=== PATIENT | male | born 1975 | race Caucasian/White ===

== ENCOUNTER 2021-10-30 20:53 | Inpatient (IN) ==
--- NOTE | 2021-10-30 21:32 | DR.CP ---
HPI Time Seen Time Seen by Provider: 10/30/21 21:29 PCP Primary Care Physician: PAVEL HPI Comment HPI Comment: CP and sob intermittently since yesterday which worsened today; no cough, fever, chills, abd pain, n/v/d; he smokes sporadically and dips; he had a spontaneous pneumo at 14 which did not require ct. Complaint Chief Complaint:: PT C/O CHEST PAIN AND SHORTNESS OF BREATH THAT STARTED YESTERDAY. PT STATED I THOUGHT IT WAS ACID REFLUX BUT TODAY THE PAIN HAS STARTED BACK AN THE PAIN IS WORSE. Source History Provided: Patient Mode of Arrival Mode of Arrival: Ambulatory Timing Onset of Chief Complaint: 10/29/21 PMH PMH Past Medical History: Yes Past Medical History Comment: BONE INFECTION OF THE SPINAL CORD Past Surgical History: No Family History History of Family Medical Conditions: No Social History Does patient currently use any type of tobacco product: No Have you used tobacco products in the last 12 months: No Type of Tobacco Use: None Does any household member use tobacco: No Do you use any recreational Drugs:: No Lives With: Family Lives Where: Home Infectious screening In the last 2 months have you had wt loss of >10#?: NO Have you had fever, night sweats or hemotysis?: No Have you traveled outside the country in the last 6 months?: No Isolation: Standard ROS Review of Systems Constitutional: No Symptoms Reported Eyes: No Symptoms Reported ENTM: No Symptoms Reported Gastrointestinal/Abdominal: No Symptoms Reported Genitourinary: No Symptoms Reported Neurological: No Symptoms Reported Musculoskeletal: No Symptoms Reported Integumentary: No Symptoms Reported Hematologic/Lymphatic: No Symptoms Reported Endocrine: No Symptoms Reported Psychiatric: No Symptoms Reported PE Vitals Vitals: Temperature 97.6 F Pulse Rate 89 Respiratory Rate 18 Blood Pressure 151/97 O2 Sat by Pulse Oximetry 95 General Limitations: No Limitations General Appearance: Alert and In No Apparent Distress Head Head Exam: Normal Inspection Eyes Eye exam: Normal Appearance ENT ENT Exam: Normal Exam Chest Chest Inspection: Normal Inspection Respiratory Respiratory Exam: Left: Decreased Breath Sounds, Right: Clear to Auscultation and Upper: Clear to Auscultation Cardiovascular Cardiovascular Exam: Regular Rate and Normal Rhythm Pulse: Normal Edema: Normal Abdominal Exam Abdominal Exam: Normal Inspection, Normal Bowel Sounds and Soft Extremities Extremities Exam: Normal Inspection Back Back Exam: Normal Inspection Neurologic Neurological Exam: Alert and Oriented X3 Psychiatric Psychiatric Exam: Normal Affect and Normal Mood Skin Skin Exam: Warm, Dry, Intact and Normal Color MDM Differential Diagnosis Differential Diagnosis: Angina, Myocardial Infarction, Pneumothorax and Pulmonary Embolus COURSE Critical Care Notes Total Time (mins): 30 Critical Diagnosis: lg lt pneumothorax Critical Interventions: ct per surgeon cta for elevated d-dimer cardiac evaluation for sob ROR Labs Reviewed Laboratory Results Reviewed?: Yes Result Diagrams: 10/30/21 21:45 10/30/21 21:45 Laboratory: WBC 6.9 X10^3/uL (3.6-10.0) 10/30/21 21:45 RBC 4.98 X10^6/uL (4.7-6.0) 10/30/21 21:45 Hgb 14.4 g/dL (13.5-18.0) 10/30/21 21:45 Hct 41.8 % (42.0-54.0) L 10/30/21 21:45 MCV 84.0 fL (80.0-100.0) 10/30/21 21:45 MCH 28.9 pg (27.0-34.0) 10/30/21 21:45 MCHC 34.5 g/dL (33.0-35.0) 10/30/21 21:45 RDW 13.6 % (11.6-16.5) 10/30/21 21:45 Plt Count 152 X10^3/uL (150.0-450.0) 10/30/21 21:45 MPV 7.4 fL (7.4-11.0) 10/30/21 21:45 Neut % (Auto) 52.9 % (42.0-75.0) 10/30/21 21:45 Lymph % (Auto) 33.5 % (21.0-51.0) 10/30/21 21:45 [place] % (Auto) 8.1 % (0.0-13.0) 10/30/21 21:45 Eos % (Auto) 5.1 % (0.9-2.9) H 10/30/21 21:45 Baso % (Auto) 0.4 % (0.2-1.0) 10/30/21 21:45 Neut # (Auto) 3.6 x10^3/uL (2.2-4.8) 10/30/21 21:45 Lymph # (Auto) 2.3 X10^3/uL (1.3-2.9) 10/30/21 21:45 [place] # (Auto) 0.6 x10^3/uL (0.3-0.8) 10/30/21 21:45 Eos # (Auto) 0.3 x10^3/uL (0.0-0.2) H 10/30/21 21:45 Baso # (Auto) 0.0 X10^3/uL (0.0-0.1) 10/30/21 21:45 Absolute Nucleated RBC 0.1 /100WBC 10/30/21 21:45 D-Dimer 2.30 ug/ml (0.0-0.57) H* 10/30/21 21:45 Sodium 138 mmol/L (136-145) 10/30/21 21:45 Corrected Sodium TNP 10/30/21 21:45 Potassium 4.0 mmol/L (3.5-5.1) 10/30/21 21:45 Chloride 102 mmol/L (98-107) 10/30/21 21:45 Carbon Dioxide 29.4 mmol/L (21-32) 10/30/21 21:45 BUN 17 mg/dL (7-18) 10/30/21 21:45 Creatinine 1.14 mg/dL (0.70-1.30) 10/30/21 21:45 Est GFR (MDRD) Af Amer > 60 (>60) 10/30/21 21:45 Est GFR (MDRD) Non-Af > 60 (>60) 10/30/21 21:45 Glucose 94 mg/dL (65-99) 10/30/21 21:45 Calcium 9.5 mg/dL (8.5-10.1) 10/30/21 21:45 Corrected Calcium TNP 10/30/21 21:45 Total Bilirubin 0.50 mg/dL (0.2-1.0) 10/30/21 21:45 AST 37 Units/L (15-37) 10/30/21 21:45 ALT 34 Units/L (12-78) 10/30/21 21:45 Alkaline Phosphatase 135 Units/L (46-116) H 10/30/21 21:45 Creatine Kinase 56 Units/L (39-308) 10/30/21 21:45 CK-MB (CK-2) 1.2 ng/mL (0-4.0) 10/30/21 21:45 CK/CKMB % Calc 2.1 % (<4) 10/30/21 21:45 Troponin I High Sens 9.7 ng/L (4.0-60.0) 10/30/21 21:45 Total Protein 9.2 g/dL (6.4-8.2) H 10/30/21 21:45 Albumin 3.8 g/dL (3.4-5.0) 10/30/21 21:45 Globulin 5.4 g/dL (2.5-4.5) H 10/30/21 21:45 Albumin/Globulin Ratio 0.7 Ratio (1.1-2.1) L 10/30/21 21:45 SARS CoV-2 RNA Rapid MALIK Negative (NEGATIVE) 10/30/21 21:53 XRAY XRAY Interpreted by: Radiologist and Self X-ray Results: greater than 70% lt pneumo pcxr: Large left-sided pneumothorax. Chest tube placement is needed. ct chest: Unremarkable CTA of the thoracic aorta and pulmonary arteries. Moderate-sized left pneumothorax. Patchy areas of subsegmental atelectasis involving the left upper and left lower lobes. Opioid Opioid Risk Tool Total: 0 Total Score Risk Category: Low Risk Copyright: Ariel GUERRA predicting aberrant behaviors Diagnosis Discharge Problem: Spontaneous pneumothorax Chest pain Qualifiers: Chest pain type: other chest pain Qualified Code(s): R07.89 - Other chest pain Dyspnea Qualifiers: Dyspnea type: shortness of breath Qualified Code(s): R06.02 - Shortness of breath Instructions Forms: Precautions for COVID19 [facility] Social Distancing
[2021-10-30 21:52] LABS: BASOPHILS % (AUTO) 0.4 % (0.2-1.0); EOSINOPHILS # (AUTO) 0.3 x10^3/uL (0.0-0.2); EOSINOPHILS % (AUTO) 5.1 % (0.9-2.9); HEMATOCRIT 41.8 % (42.0-54.0); HEMOGLOBIN 14.4 g/dL (13.5-18.0); LYMPHOCYTES # (AUTO) 2.3 X10^3/uL (1.3-2.9); LYMPHOCYTES % (AUTO) 33.5 % (21.0-51.0); MEAN CORPUSCULAR HEMOGLOBIN 28.9 pg (27.0-34.0); MEAN CORPUSCULAR HGB CONC 34.5 g/dL (33.0-35.0); MEAN PLATELET VOLUME 7.4 fL (7.4-11.0); MONOCYTES # (AUTO) 0.6 x10^3/uL (0.3-0.8); MONOCYTES % (AUTO) 8.1 % (0.0-13.0); NEUTROPHILS # (AUTO) 3.6 x10^3/uL (2.2-4.8); NEUTROPHILS % (AUTO) 52.9 % (42.0-75.0); RED BLOOD COUNT 4.98 X10^6/uL (4.7-6.0); RED CELL DISTRIBUTION WIDTH 13.6 % (11.6-16.5); WHITE BLOOD COUNT 6.9 X10^3/uL (3.6-10.0)
--- NOTE | 2021-10-30 21:53 | RAD ---
HISTORYCHEST PAIN ONSET 1 DAY AGO, WORSE TODAY Relevant Clinical InformationSTUDYCHEST, 1 VIEWCOMPARISONFINDINGSHeart size is normal. The right lung is clear. There is a large left-sided pneumothorax with collapse of the left lung. There is no free air under the diaphragm. There is no rib fracture..IMPRESSIONLarge left-sided pneumothorax. Chest tube placement is needed..Electronically signed by: Durga Perez (Oct 30, 2021 21:52:06)
[2021-10-30 22:13] LABS: ALANINE AMINOTRANSFERASE 34 Units/L (12-78); ALBUMIN 3.8 g/dL (3.4-5.0); ALKALINE PHOSPHATASE 135 Units/L (46-116); ASPARTATE AMINO TRANSFERASE 37 Units/L (15-37); BLOOD UREA NITROGEN 17 mg/dL (7-18); CALCIUM 9.5 mg/dL (8.5-10.1); CARBON DIOXIDE 29.4 mmol/L (21-32); CHLORIDE 102 mmol/L (98-107); CKMB % 2.1 % (<4); CREATINE KINASE 56 Units/L (39-308); CREATINE KINASE MB 1.2 ng/mL (0-4.0); CREATININE 1.14 mg/dL (0.70-1.30); SODIUM 138 mmol/L (136-145); TOTAL PROTEIN 9.2 g/dL (6.4-8.2); eGFR NON BLACK RACES > 60 (>60)
[2021-10-30] MEDS ORDERED: VERSED ONE (23:10)
[2021-10-30] MEDS ORDERED: XYLOCAINE 1 % (PLAIN) ONE (23:19)
[2021-10-30] MEDS ORDERED: STERILE WATER IRRIGATION IR ONE ×2 (23:23→23:45)
[2021-10-30] MEDS ORDERED: XYLOCAINE 1 % (PLAIN) IJ ONE (23:44)
[2021-10-30] MEDS ORDERED: LR 1,000 ML IV 1,000 ML IV SCH (23:45)
[2021-10-30] MEDS: VERSED IVP ONE (23:46)
[2021-10-30] MEDS ORDERED: LR 1,000 ML IV 1,000 ML IV ONE (23:53)
[2021-10-31] MEDS ORDERED: PERCOCET TAB 5/325 MG ONE
--- NOTE | 2021-10-31 | RAD ---
HISTORYCHEST TUBE PLACEMENT Relevant Clinical InformationSTUDYCHEST, 1 [id number]/24/2022FINDINGSThe trachea is midline. There is been interval insertion of a left chest tube. The cardiac silhouette is unremarkable. Small left pneumothorax decreased in size from prior study. There is some patchy opacification within the left lung base. The right lung is clear.. The bony thorax is unremarkable.IMPRESSIONSmall left pneumothorax decreased in size following placement of left chest tube..Electronically signed by: Regan Wright (Oct 30, 2021 23:59:14)
[2021-10-31] MEDS: PERCOCET TAB 5/325 MG PO PRN ×2 (00:04→15:28)
--- NOTE | 2021-10-31 01:11 | CT ---
HISTORYELEVATED D-DIMER, S/P CHEST TUBE PLACEMENTSTUDYCTA CHESTCOMPARISONChest radiograph 10/30/2021TECHNIQUEMultiple axial images of the chest were obtained from the thoracic inlet to the upper abdomen after the administration of IV contrast. 3D reconstructions utilizing axial MIPS imaging was performed and reviewed. Dose reduction techniques including Automated Exposure Control (AEC) and adjustment of mA and kV were utilized.FINDINGSThe mediastinum does not demonstrate significant pathological lymphadenopathy. There is no paracardial effusion observed. The thoracic aorta is normal in its contour without evidence for aneurysmal dilatation. The central pulmonary arterial system does not demonstrate central filling defects to suggest pulmonary emboli.Evaluation of the lung parenchyma demonstrates moderate-sized left pneumothorax. There is a left chest tube present. There are patchy areas of subsegmental atelectasis involving the left upper and lower lobes. There is subcutaneous emphysema adjacent to the left anterior chest wall.. No pulmonary nodule or mass can be identified. The bony thorax is unremarkable in its appearance . The visualized portions of the upper abdomen are grossly unremarkable .IMPRESSIONUnremarkable CTA of the thoracic aorta and pulmonary arteries.Moderate-sized left pneumothorax.Patchy areas of subsegmental atelectasis involving the left upper and left lower lobes.Electronically signed by: Regan Wright (Oct 31, 2021 01:09:24)
[2021-10-31] MEDS: NS 1,000 ML IV 1,000 ML IV SCH ×3 (02:28→14:39)
[2021-10-31] MEDS ORDERED: VERSED IVP ONE (02:34)
[2021-10-31] MEDS: VERSED IVP ONE (02:37)
[2021-10-31] MEDS: ZOFRAN INJ 4 MG VIAL IVP PRN ×2 (08:22→14:30)
[2021-10-31] MEDS: DILAUDID INJ IVP PRN ×3 (08:22→18:10)
[2021-10-31] MEDS: LOVENOX INJ 40 MG SYR SC SCH (08:29)
[2021-10-31] MEDS: ATIVAN TAB 1 MG PO PRN ×2 (17:56→23:40)
--- NOTE | 2021-10-31 22:44 | DR.H&P ---
H&P History & Physical for Day of: H&P Date: 10/31/21 Chief Complaint Chief Complaint: 45 yo male, smoker, who presented with several day history increasing shortness of breath . Hx of left spontaneous pneumothorax at 14 yo. Evaluated in ER and had CXR showing significant left sided pneumothorax. Hx of osteomyelitis of spine treated with senior care IV antibiotics. Denies any recent chest trauma. Allergies Allergies Allergy/AdvReac Type Severity Reaction Status Date / Time No Known Drug Allergies Allergy Verified 10/30/21 21:13 History of Present Illness History of Present Illness: As above Past Medical History Additional Medical History: Hx of spontaneous left pneumothorax treated at 14 yo with observation Past Surgical History Surgical History: Ortho Surgery Family History Family Medical History: Diabetes Mellitus Social History Does patient currently use any type of tobacco product: Yes Have you used tobacco products in the last 12 months: Yes Type of Tobacco Use: Cigarettes How many years tobacco product used: 20 Does any household member use tobacco: No Alcohol Use: None Drug Use: None Medications Home Medications: No Known Drug Allergies Allergy (Verified 10/30/21 21:13) CONTINUE taking the following medications NK 10/31/21 [History] Labs Result Diagrams: 10/30/21 21:45 10/30/21 21:45 Labs: Laboratory WBC 6.9 X10^3/uL (3.6-10.0) 10/30/21 21:45 RBC 4.98 X10^6/uL (4.7-6.0) 10/30/21 21:45 Hgb 14.4 g/dL (13.5-18.0) 10/30/21 21:45 Hct 41.8 % (42.0-54.0) L 10/30/21 21:45 MCV 84.0 fL (80.0-100.0) 10/30/21 21:45 MCH 28.9 pg (27.0-34.0) 10/30/21 21:45 MCHC 34.5 g/dL (33.0-35.0) 10/30/21 21:45 RDW 13.6 % (11.6-16.5) 10/30/21 21:45 Plt Count 152 X10^3/uL (150.0-450.0) 10/30/21 21:45 MPV 7.4 fL (7.4-11.0) 10/30/21 21:45 Neut % (Auto) 52.9 % (42.0-75.0) 10/30/21 21:45 Lymph % (Auto) 33.5 % (21.0-51.0) 10/30/21 21:45 [place] % (Auto) 8.1 % (0.0-13.0) 10/30/21 21:45 Eos % (Auto) 5.1 % (0.9-2.9) H 10/30/21 21:45 Baso % (Auto) 0.4 % (0.2-1.0) 10/30/21 21:45 Neut # (Auto) 3.6 x10^3/uL (2.2-4.8) 10/30/21 21:45 Lymph # (Auto) 2.3 X10^3/uL (1.3-2.9) 10/30/21 21:45 [place] # (Auto) 0.6 x10^3/uL (0.3-0.8) 10/30/21 21:45 Eos # (Auto) 0.3 x10^3/uL (0.0-0.2) H 10/30/21 21:45 Baso # (Auto) 0.0 X10^3/uL (0.0-0.1) 10/30/21 21:45 Absolute Nucleated RBC 0.1 /100WBC 10/30/21 21:45 D-Dimer 2.30 ug/ml (0.0-0.57) H* 10/30/21 21:45 Sodium 138 mmol/L (136-145) 10/30/21 21:45 Corrected Sodium TNP 10/30/21 21:45 Potassium 4.0 mmol/L (3.5-5.1) 10/30/21 21:45 Chloride 102 mmol/L (98-107) 10/30/21 21:45 Carbon Dioxide 29.4 mmol/L (21-32) 10/30/21 21:45 BUN 17 mg/dL (7-18) 10/30/21 21:45 Creatinine 1.14 mg/dL (0.70-1.30) 10/30/21 21:45 Est GFR (MDRD) Af Amer > 60 (>60) 10/30/21 21:45 Est GFR (MDRD) Non-Af > 60 (>60) 10/30/21 21:45 Glucose 94 mg/dL (65-99) 10/30/21 21:45 Calcium 9.5 mg/dL (8.5-10.1) 10/30/21 21:45 Corrected Calcium TNP 10/30/21 21:45 Total Bilirubin 0.50 mg/dL (0.2-1.0) 10/30/21 21:45 AST 37 Units/L (15-37) 10/30/21 21:45 ALT 34 Units/L (12-78) 10/30/21 21:45 Alkaline Phosphatase 135 Units/L (46-116) H 10/30/21 21:45 Creatine Kinase 56 Units/L (39-308) 10/30/21 21:45 CK-MB (CK-2) 1.2 ng/mL (0-4.0) 10/30/21 21:45 CK/CKMB % Calc 2.1 % (<4) 10/30/21 21:45 Troponin I High Sens 9.7 ng/L (4.0-60.0) 10/30/21 21:45 Total Protein 9.2 g/dL (6.4-8.2) H 10/30/21 21:45 Albumin 3.8 g/dL (3.4-5.0) 10/30/21 21:45 Globulin 5.4 g/dL (2.5-4.5) H 10/30/21 21:45 Albumin/Globulin Ratio 0.7 Ratio (1.1-2.1) L 10/30/21 21:45 SARS CoV-2 RNA Rapid MALIK Negative (NEGATIVE) 10/30/21 21:53 Review of Systems Constitutional: See HPI Eyes: No Symptoms Reported ENT: No Symptoms Reported Respiratory: See HPI and Shortness of Breath Cardiovascular: No Symptoms Reported Gastrointestinal: No Symptoms Reported Genitourinary: No Symptoms Reported Musculoskeletal: No Symptoms Reported Skin: No Symptoms Reported Neurological: No Symptoms Reported Physical Exam Vital Signs: Temperature 97.7 F Pulse Rate [Right Brachial] 65 Pulse Rate 78 Respiratory Rate 20 Blood Pressure [Right Arm] 161/95 Blood Pressure 126/76 O2 Sat by Pulse Oximetry 97 hgb =14.1. WBC= 6.9 Oriented: Normal, Time, Person and Place Eyes: Normal Ear: Normal Nose: Normal Throat: Normal Respiratory: MAUREEN Diminished and LLL Diminished Cardiovascular: Normal : Normal Auscultation: Bowel Sounds: Normal Palpation: Normal Tenderness: Normal Skin: Normal Musculoskeletal: Normal Psychiatric: Normal Mood Description: Anxious Speech Pattern: Clear Assessment/Plan (1) Spontaneous pneumothorax: Status: Acute Plan: Place left sided chest tube . With 2nd episode of left spontaneous pneumothorax he is at high risk of requiring bleb resection of the left lung. Sumeet try to re-expand left lung with chest tube and observe for persistent air leak. Review H&P Reviewed: Yes Patient was examined?: Yes
--- NOTE | 2021-10-31 23:13 | DR.OPNOTE ---
OP NOTE Pre-Op Diagnosis: left pneumothorax Post-Op Diagnosis: same Procedure Date Date Of Procedure: 10/31/21 Procedure: He left chest prepped and draped in sterile fashion. Patient was given 2 mg of IV Versed . The skin underlying the pectoralis at the anterior lateral chest infiltrated with 10 cc's of 1% Xylocaine . 2 cm incision was made here and a clamp used to dissect over the rib into the chest puncturing through the pleura releasing the air. A 28 [place] chest tube placed and the tube secured to the skin with interrupted 2-silk suture. Dressing applied and the chest tube connected to a suction bottle. Post procedure CXR showed near complete resolution of the left sided pneumothorax. Type of Anesthesia: Local (10 cc of Xylocaine ) Anesthesia Comment: 2 mg IV Versed Findings: as above Specimen/Pathology: none EBL: minimal Drains/Tubes Placed: None Drains/Tubes Comment: 28 [place] chest tube Complications:: none Needle/Sponge Count:: correct Disposition/Condition: Pt. tolerated procedure without difficulty. Extubated in the OR and taken to PACU in stable condition.
[2021-10-31] MEDS: NORCO 7.5/325 MG TAB PO PRN (23:40)
[2021-11-01] MEDS: NS 1,000 ML IV 1,000 ML IV SCH ×3 (04:05→17:06)
[2021-11-01] MEDS: DILAUDID INJ IVP PRN ×3 (04:06→20:58)
[2021-11-01 04:28] LABS: BASOPHILS # (AUTO) 0.1 X10^3/uL (0.0-0.1); EOSINOPHILS # (AUTO) 0.3 x10^3/uL (0.0-0.2); EOSINOPHILS % (AUTO) 4.6 % (0.9-2.9); HEMATOCRIT 38.1 % (42.0-54.0); LYMPHOCYTES # (AUTO) 1.9 X10^3/uL (1.3-2.9); LYMPHOCYTES % (AUTO) 26.5 % (21.0-51.0); MEAN CORPUSCULAR HEMOGLOBIN 28.7 pg (27.0-34.0); MEAN CORPUSCULAR HGB CONC 34.2 g/dL (33.0-35.0); MEAN CORPUSCULAR VOLUME 83.9 fL (80.0-100.0); MEAN PLATELET VOLUME 7.7 fL (7.4-11.0); MONOCYTES # (AUTO) 0.4 x10^3/uL (0.3-0.8); MONOCYTES % (AUTO) 5.5 % (0.0-13.0); NEUTROPHILS # (AUTO) 4.4 x10^3/uL (2.2-4.8); NEUTROPHILS % (AUTO) 62.4 % (42.0-75.0); RED BLOOD COUNT 4.54 X10^6/uL (4.7-6.0); RED CELL DISTRIBUTION WIDTH 13.6 % (11.6-16.5); WHITE BLOOD COUNT 7.1 X10^3/uL (3.6-10.0)
[2021-11-01 04:38] LABS: ALANINE AMINOTRANSFERASE 28 Units/L (12-78); ALBUMIN 3.1 g/dL (3.4-5.0); ALKALINE PHOSPHATASE 122 Units/L (46-116); ASPARTATE AMINO TRANSFERASE 29 Units/L (15-37); BLOOD UREA NITROGEN 13 mg/dL (7-18); CALCIUM 8.7 mg/dL (8.5-10.1); CARBON DIOXIDE 27.8 mmol/L (21-32); CHLORIDE 105 mmol/L (98-107); COR CA(FOR HYPOALB) 9.4 mg/dL (8.5-10.1); COR NA(FOR HYPERGLY) 140 mmol/L (136-145); CREATININE 1.13 mg/dL (0.70-1.30); SODIUM 139 mmol/L (136-145); TOTAL PROTEIN 7.8 g/dL (6.4-8.2); eGFR NON BLACK RACES > 60 (>60)
[2021-11-01] MEDS: LOVENOX INJ 40 MG SYR SC SCH (08:39)
--- NOTE | 2021-11-01 09:50 | DR.PROGNOT ---
Hospital Progress Notes - Progress Note for Day of: Progress Note Date: 11/01/21 - Chief Complaint Chief Complaint: c/o pain at chest tube site .. no SOB . minimal drainage from chest -T . afebrile .. - Past Medical Family Social History Past Med/Fam/Surg Hx: No changes since H&P Allergies: Allergies No Known Drug Allergies Allergy (Verified 10/30/21 21:13) - Review Of Systems ROS: No change since H&P - Vital Signs Vital Signs: Temperature 98.3 F Pulse Rate [Right Brachial] 90 Pulse Rate 78 Respiratory Rate 20 Blood Pressure [Right Arm] 143/94 Blood Pressure 126/76 O2 Sat by Pulse Oximetry 92 - Physical Exam Oriented: Normal, Time, Person, Place Eyes: Normal Ear: Normal Nose: Normal Throat: Normal Respiratory: OTHER (clear lung both sides .) Cardiovascular: Normal : Normal GI:Auscultation: Normal GI:Palpation: Normal GI: Tenderness: Normal Skin: Normal Musculoskeletal: Normal Psychiatric: Normal Mood Description: Anxious Speech Pattern: Clear, Appropriate - Laboratory and Diagnostics Result Diagrams: 11/01/21 04:06 11/01/21 04:06 Labs: Laboratory WBC 7.1 X10^3/uL (3.6-10.0) 11/01/21 04:06 RBC 4.54 X10^6/uL (4.7-6.0) L 11/01/21 04:06 Hgb 13.0 g/dL (13.5-18.0) L 11/01/21 04:06 Hct 38.1 % (42.0-54.0) L 11/01/21 04:06 MCV 83.9 fL (80.0-100.0) 11/01/21 04:06 MCH 28.7 pg (27.0-34.0) 11/01/21 04:06 MCHC 34.2 g/dL (33.0-35.0) 11/01/21 04:06 RDW 13.6 % (11.6-16.5) 11/01/21 04:06 Plt Count 140 X10^3/uL (150.0-450.0) L 11/01/21 04:06 MPV 7.7 fL (7.4-11.0) 11/01/21 04:06 Neut % (Auto) 62.4 % (42.0-75.0) 11/01/21 04:06 Lymph % (Auto) 26.5 % (21.0-51.0) 11/01/21 04:06 [place] % (Auto) 5.5 % (0.0-13.0) 11/01/21 04:06 Eos % (Auto) 4.6 % (0.9-2.9) H 11/01/21 04:06 Baso % (Auto) 1.0 % (0.2-1.0) 11/01/21 04:06 Neut # (Auto) 4.4 x10^3/uL (2.2-4.8) 11/01/21 04:06 Lymph # (Auto) 1.9 X10^3/uL (1.3-2.9) 11/01/21 04:06 [place] # (Auto) 0.4 x10^3/uL (0.3-0.8) 11/01/21 04:06 Eos # (Auto) 0.3 x10^3/uL (0.0-0.2) H 11/01/21 04:06 Baso # (Auto) 0.1 X10^3/uL (0.0-0.1) 11/01/21 04:06 Absolute Nucleated RBC 0.1 /100WBC 11/01/21 04:06 D-Dimer 2.30 ug/ml (0.0-0.57) H* 10/30/21 21:45 Sodium 139 mmol/L (136-145) 11/01/21 04:06 Corrected Sodium 140 mmol/L (136-145) 11/01/21 04:06 Potassium 3.6 mmol/L (3.5-5.1) 11/01/21 04:06 Chloride 105 mmol/L (98-107) 11/01/21 04:06 Carbon Dioxide 27.8 mmol/L (21-32) 11/01/21 04:06 BUN 13 mg/dL (7-18) 11/01/21 04:06 Creatinine 1.13 mg/dL (0.70-1.30) 11/01/21 04:06 Est GFR (MDRD) Af Amer > 60 (>60) 11/01/21 04:06 Est GFR (MDRD) Non-Af > 60 (>60) 11/01/21 04:06 Glucose 122 mg/dL (65-99) H 11/01/21 04:06 Calcium 8.7 mg/dL (8.5-10.1) 11/01/21 04:06 Corrected Calcium 9.4 mg/dL (8.5-10.1) 11/01/21 04:06 Total Bilirubin 0.40 mg/dL (0.2-1.0) 11/01/21 04:06 AST 29 Units/L (15-37) 11/01/21 04:06 ALT 28 Units/L (12-78) 11/01/21 04:06 Alkaline Phosphatase 122 Units/L (46-116) H 11/01/21 04:06 Creatine Kinase 56 Units/L (39-308) 10/30/21 21:45 CK-MB (CK-2) 1.2 ng/mL (0-4.0) 10/30/21 21:45 CK/CKMB % Calc 2.1 % (<4) 10/30/21 21:45 Troponin I High Sens 9.7 ng/L (4.0-60.0) 10/30/21 21:45 Total Protein 7.8 g/dL (6.4-8.2) 11/01/21 04:06 Albumin 3.1 g/dL (3.4-5.0) L 11/01/21 04:06 Globulin 4.7 g/dL (2.5-4.5) H 11/01/21 04:06 Albumin/Globulin Ratio 0.7 Ratio (1.1-2.1) L 11/01/21 04:06 SARS CoV-2 RNA Rapid MALIK Negative (NEGATIVE) 10/30/21 21:53 - Assessment and Plan 1: spontaneous Lt pneumothorax . S/P placement of chest tube . to repeat chest Xray . - Problem Patient Problems: Patient Problems Spontaneous pneumothorax (Acute) J93.83 Chest pain (Acute) R07.9 Dyspnea (Acute) R06.00
[2021-11-01] MEDS: PERCOCET TAB 5/325 MG PO PRN (11:14)
[2021-11-01] MEDS: NORCO 7.5/325 MG TAB PO PRN (14:56)
[2021-11-01] MEDS: ATIVAN TAB 1 MG PO PRN (20:57)
[2021-11-02] MEDS: NS 1,000 ML IV 1,000 ML IV SCH ×4 (02:33→19:47)
[2021-11-02] MEDS: DILAUDID INJ IVP PRN ×2 (02:34→17:53)
[2021-11-02] MEDS: ATIVAN TAB 1 MG PO PRN ×3 (05:33→23:22)
[2021-11-02] MEDS: NORCO 7.5/325 MG TAB PO PRN ×2 (05:34→15:27)
--- NOTE | 2021-11-02 06:12 | RAD ---
HISTORYpneumothoraxSTUDYCHEST, 1 [id number]/24/2022.TECHNIQUEAP view of the chestFINDINGSCardiac and mediastinal contours are within normal limits. There is the left sided thoracostomy tube in stable position. Left base predominant pneumothorax is mildly larger than prior radiograph. For example there is approximately 5.3 cm of pleural separation at the left base versus 3 cm on prior study. No convincing evidence of tension. Left medial base opacity likely subsegmental atelectasis. The right lung is clear.IMPRESSIONMildly larger left base pneumothorax compared to prior study. There is approximately 5.3 cm of pleural separation versus 3 cm on prior study. No convincing evidence of tension.Electronically signed by: Eran Julian (Nov 02, 2021 06:11:34)
--- NOTE | 2021-11-02 06:25 | RAD ---
HISTORYPNEUMOTHORAXSTUDYCHEST, 1 VIEWCOMPARISONOne day prior.TECHNIQUEAP view of the chestFINDINGSCardiac and mediastinal contours are within normal limits. Left-sided thoracostomy tube in stable position. No significant change in left base pneumothorax compared to the most recent prior. No evidence of tension. Right lung is clear. Subcutaneous emphysema in the left chest is noted.IMPRESSIONNo significant change in moderate left pneumothorax.Electronically signed by: Eran Julian (Nov 02, 2021 06:24:44)
[2021-11-02 06:45] LABS: BASOPHILS # (AUTO) 0.1 X10^3/uL (0.0-0.1)
[2021-11-02 07:10] LABS: ALANINE AMINOTRANSFERASE 25 Units/L (12-78); ALBUMIN 2.8 g/dL (3.4-5.0); ALKALINE PHOSPHATASE 108 Units/L (46-116); ASPARTATE AMINO TRANSFERASE 30 Units/L (15-37); BLOOD UREA NITROGEN 14 mg/dL (7-18); CALCIUM 8.5 mg/dL (8.5-10.1); CARBON DIOXIDE 24.1 mmol/L (21-32); CHLORIDE 107 mmol/L (98-107); COR CA(FOR HYPOALB) 9.5 mg/dL (8.5-10.1); COR NA(FOR HYPERGLY) 140 mmol/L (136-145); CREATININE 0.95 mg/dL (0.70-1.30); SODIUM 140 mmol/L (136-145); TOTAL PROTEIN 7.2 g/dL (6.4-8.2); eGFR NON BLACK RACES > 60 (>60)
[2021-11-02 07:15] LABS: BASOPHILS % (AUTO) 1.5 % (0.2-1.0); EOSINOPHILS # (AUTO) 0.7 x10^3/uL (0.0-0.2); EOSINOPHILS % (AUTO) 7.5 % (0.9-2.9); HEMATOCRIT 37.2 % (42.0-54.0); HEMOGLOBIN 12.6 g/dL (13.5-18.0); LYMPHOCYTES # (AUTO) 2.4 X10^3/uL (1.3-2.9); LYMPHOCYTES % (AUTO) 26.8 % (21.0-51.0); MEAN CORPUSCULAR HEMOGLOBIN 28.6 pg (27.0-34.0); MEAN CORPUSCULAR VOLUME 84.3 fL (80.0-100.0); MEAN PLATELET VOLUME 9.3 fL (7.4-11.0); MONOCYTES # (AUTO) 0.6 x10^3/uL (0.3-0.8); MONOCYTES % (AUTO) 6.5 % (0.0-13.0); NEUTROPHILS # (AUTO) 5.1 x10^3/uL (2.2-4.8); NEUTROPHILS % (AUTO) 57.7 % (42.0-75.0); RED BLOOD COUNT 4.41 X10^6/uL (4.7-6.0); RED CELL DISTRIBUTION WIDTH 13.7 % (11.6-16.5)
[2021-11-02 07:24] LABS: WHITE BLOOD COUNT 8.9 X10^3/uL (3.6-10.0)
[2021-11-02 07:25] LABS: PLATELET MORPHOLOGY COMMENT ABNORMAL (NORMAL)
[2021-11-02] MEDS: LOVENOX INJ 40 MG SYR SC SCH (09:12)
--- NOTE | 2021-11-02 09:17 | DR.PROGNOT ---
Hospital Progress Notes - Progress Note for Day of: Progress Note Date: 11/02/21 - Chief Complaint Chief Complaint: no changes . no SOB or chest pain . chest X ray showed small pneumothorax lower base , the rest of the lung is expanded .. - Past Medical Family Social History Past Med/Fam/Surg Hx: No changes since H&P Allergies: Allergies No Known Drug Allergies Allergy (Verified 10/30/21 21:13) - Review Of Systems ROS: No change since H&P - Vital Signs Vital Signs: Temperature 98.2 F Pulse Rate [Right Brachial] 89 Pulse Rate 78 Respiratory Rate 20 Blood Pressure [Right Arm] 134/63 Blood Pressure 126/76 O2 Sat by Pulse Oximetry 96 - Physical Exam Oriented: Normal, Time, Person, Place Eyes: Normal Ear: Normal Nose: Normal Throat: Normal Respiratory: OTHER (clear lung both sides .) Cardiovascular: Normal : Normal GI:Auscultation: Normal GI:Palpation: Normal GI: Tenderness: Normal Skin: Normal Musculoskeletal: Normal Psychiatric: Normal Mood Description: Anxious Speech Pattern: Clear, Appropriate - Laboratory and Diagnostics Result Diagrams: 11/02/21 06:15 11/02/21 06:15 Labs: Laboratory WBC 8.9 X10^3/uL (3.6-10.0) 11/02/21 06:15 RBC 4.41 X10^6/uL (4.7-6.0) L 11/02/21 06:15 Hgb 12.6 g/dL (13.5-18.0) L 11/02/21 06:15 Hct 37.2 % (42.0-54.0) L 11/02/21 06:15 MCV 84.3 fL (80.0-100.0) 11/02/21 06:15 MCH 28.6 pg (27.0-34.0) 11/02/21 06:15 MCHC 34.0 g/dL (33.0-35.0) 11/02/21 06:15 RDW 13.7 % (11.6-16.5) 11/02/21 06:15 Plt Count 104 X10^3/uL (150.0-450.0) L 11/02/21 06:15 Plt Count Comment Decreased (ADEQUATE) 11/02/21 06:15 MPV 9.3 fL (7.4-11.0) 11/02/21 06:15 Neut % (Auto) 57.7 % (42.0-75.0) 11/02/21 06:15 Lymph % (Auto) 26.8 % (21.0-51.0) 11/02/21 06:15 [place] % (Auto) 6.5 % (0.0-13.0) 11/02/21 06:15 Eos % (Auto) 7.5 % (0.9-2.9) H 11/02/21 06:15 Baso % (Auto) 1.5 % (0.2-1.0) H 11/02/21 06:15 Neut # (Auto) 5.1 x10^3/uL (2.2-4.8) H 11/02/21 06:15 Lymph # (Auto) 2.4 X10^3/uL (1.3-2.9) 11/02/21 06:15 [place] # (Auto) 0.6 x10^3/uL (0.3-0.8) 11/02/21 06:15 Eos # (Auto) 0.7 x10^3/uL (0.0-0.2) H 11/02/21 06:15 Baso # (Auto) 0.1 X10^3/uL (0.0-0.1) 11/02/21 06:15 Absolute Nucleated RBC 0.1 /100WBC 11/02/21 06:15 Plt Clumps, EDTA Moderate 11/02/21 06:15 Plt Morphology Comment Abnormal (NORMAL) 11/02/21 06:15 RBC Morphology Normal (NORMAL) 11/02/21 06:15 D-Dimer 2.30 ug/ml (0.0-0.57) H* 10/30/21 21:45 Sodium 140 mmol/L (136-145) 11/02/21 06:15 Corrected Sodium 140 mmol/L (136-145) 11/02/21 06:15 Potassium 3.8 mmol/L (3.5-5.1) 11/02/21 06:15 Chloride 107 mmol/L (98-107) 11/02/21 06:15 Carbon Dioxide 24.1 mmol/L (21-32) 11/02/21 06:15 BUN 14 mg/dL (7-18) 11/02/21 06:15 Creatinine 0.95 mg/dL (0.70-1.30) 11/02/21 06:15 Est GFR (MDRD) Af Amer > 60 (>60) 11/02/21 06:15 Est GFR (MDRD) Non-Af > 60 (>60) 11/02/21 06:15 Glucose 119 mg/dL (65-99) H 11/02/21 06:15 Calcium 8.5 mg/dL (8.5-10.1) 11/02/21 06:15 Corrected Calcium 9.5 mg/dL (8.5-10.1) 11/02/21 06:15 Total Bilirubin 0.40 mg/dL (0.2-1.0) 11/02/21 06:15 AST 30 Units/L (15-37) 11/02/21 06:15 ALT 25 Units/L (12-78) 11/02/21 06:15 Alkaline Phosphatase 108 Units/L (46-116) 11/02/21 06:15 Creatine Kinase 56 Units/L (39-308) 10/30/21 21:45 CK-MB (CK-2) 1.2 ng/mL (0-4.0) 10/30/21 21:45 CK/CKMB % Calc 2.1 % (<4) 10/30/21 21:45 Troponin I High Sens 9.7 ng/L (4.0-60.0) 10/30/21 21:45 Total Protein 7.2 g/dL (6.4-8.2) 11/02/21 06:15 Albumin 2.8 g/dL (3.4-5.0) L 11/02/21 06:15 Globulin 4.4 g/dL (2.5-4.5) 11/02/21 06:15 Albumin/Globulin Ratio 0.6 Ratio (1.1-2.1) L 11/02/21 06:15 SARS CoV-2 RNA Rapid MALIK Negative (NEGATIVE) 10/30/21 21:53 - Assessment and Plan 1: spontaneous Lt pneumothorax . S/P placement of chest. suction was slightly increased and will repeat chest X Ray in am .. - Problem Patient Problems: Patient Problems Spontaneous pneumothorax (Acute) J93.83 Chest pain (Acute) R07.9 Dyspnea (Acute) R06.00
[2021-11-02] MEDS: PERCOCET TAB 5/325 MG PO PRN (23:34)
[2021-11-03] MEDS: DILAUDID INJ IVP PRN ×3 (03:36→16:36)
[2021-11-03 05:00] LABS: BASOPHILS % (AUTO) 0.3 % (0.2-1.0); EOSINOPHILS # (AUTO) 0.6 x10^3/uL (0.0-0.2); EOSINOPHILS % (AUTO) 8.2 % (0.9-2.9); HEMATOCRIT 37.2 % (42.0-54.0); HEMOGLOBIN 12.8 g/dL (13.5-18.0); LYMPHOCYTES # (AUTO) 2.2 X10^3/uL (1.3-2.9); LYMPHOCYTES % (AUTO) 30.8 % (21.0-51.0); MEAN CORPUSCULAR HGB CONC 34.4 g/dL (33.0-35.0); MEAN CORPUSCULAR VOLUME 84.2 fL (80.0-100.0); MEAN PLATELET VOLUME 7.8 fL (7.4-11.0); MONOCYTES # (AUTO) 0.5 x10^3/uL (0.3-0.8); MONOCYTES % (AUTO) 7.6 % (0.0-13.0); NEUTROPHILS # (AUTO) 3.8 x10^3/uL (2.2-4.8); NEUTROPHILS % (AUTO) 53.1 % (42.0-75.0); RED BLOOD COUNT 4.42 X10^6/uL (4.7-6.0); RED CELL DISTRIBUTION WIDTH 13.6 % (11.6-16.5); WHITE BLOOD COUNT 7.2 X10^3/uL (3.6-10.0)
[2021-11-03 05:26] LABS: ALANINE AMINOTRANSFERASE 24 Units/L (12-78); ALBUMIN 2.8 g/dL (3.4-5.0); ALKALINE PHOSPHATASE 107 Units/L (46-116); ASPARTATE AMINO TRANSFERASE 20 Units/L (15-37); BLOOD UREA NITROGEN 15 mg/dL (7-18); CALCIUM 8.6 mg/dL (8.5-10.1); CHLORIDE 109 mmol/L (98-107); COR CA(FOR HYPOALB) 9.6 mg/dL (8.5-10.1); CREATININE 1.05 mg/dL (0.70-1.30); SODIUM 142 mmol/L (136-145); TOTAL PROTEIN 7.3 g/dL (6.4-8.2); eGFR NON BLACK RACES > 60 (>60)
--- NOTE | 2021-11-03 06:54 | RAD ---
HISTORYFollow-up pneumothoraxSTUDYAP chestCOMPARISONFebruary 2021FINDINGSHeart size normal with stable position of left chest tube. Suspect small residual left apical pneumothorax with possible additional pleural air component at the left base. Mediastinum remains midline with clear right lung. No pleural fluid is demonstrated.IMPRESSIONSmall persistent left pneumothorax with no definite change since 1 day prior.Electronically signed by: GINA KHANNA (Nov 03, 2021 06:53:23)
[2021-11-03] MEDS: LOVENOX INJ 40 MG SYR SC SCH (08:38)
[2021-11-03] MEDS: NORCO 7.5/325 MG TAB PO PRN (10:38)
[2021-11-03] MEDS: PERCOCET TAB 5/325 MG PO PRN ×2 (12:05→23:02)
[2021-11-03] MEDS: NS 1,000 ML IV 1,000 ML IV SCH ×2 (16:45→21:00)
[2021-11-03] MEDS: ATIVAN TAB 1 MG PO PRN (16:45)
--- NOTE | 2021-11-03 23:48 | NOTE.SOAP ---
Soap Note Note for Day of Date of Exam: 11/03/21 Subjective Data Subjective Data: Doing well since chest tube placed Objective Data Temperature: 99 F Pulse Rate: 90 Respiratory Rate: 20 Blood Pressure: 146/95 O2 Sat by Pulse Oximetry: 97 Objective Data: left chest tube with no air leak Assessment Assessment: Left pneumothorax treated with chest tube Plan Plan: Chest tube to water seal.
[2021-11-04 04:54] LABS: BASOPHILS % (AUTO) 0.4 % (0.2-1.0); EOSINOPHILS # (AUTO) 0.6 x10^3/uL (0.0-0.2); EOSINOPHILS % (AUTO) 7.7 % (0.9-2.9); HEMATOCRIT 35.3 % (42.0-54.0); HEMOGLOBIN 12.1 g/dL (13.5-18.0); LYMPHOCYTES # (AUTO) 2.3 X10^3/uL (1.3-2.9); LYMPHOCYTES % (AUTO) 30.6 % (21.0-51.0); MEAN CORPUSCULAR HEMOGLOBIN 28.6 pg (27.0-34.0); MEAN CORPUSCULAR HGB CONC 34.1 g/dL (33.0-35.0); MEAN CORPUSCULAR VOLUME 83.7 fL (80.0-100.0); MEAN PLATELET VOLUME 7.7 fL (7.4-11.0); MONOCYTES # (AUTO) 0.6 x10^3/uL (0.3-0.8); MONOCYTES % (AUTO) 7.4 % (0.0-13.0); NEUTROPHILS % (AUTO) 53.9 % (42.0-75.0); RED BLOOD COUNT 4.22 X10^6/uL (4.7-6.0); RED CELL DISTRIBUTION WIDTH 13.8 % (11.6-16.5); WHITE BLOOD COUNT 7.5 X10^3/uL (3.6-10.0)
[2021-11-04 05:26] LABS: ALANINE AMINOTRANSFERASE 21 Units/L (12-78); ALBUMIN 2.7 g/dL (3.4-5.0); ALKALINE PHOSPHATASE 103 Units/L (46-116); ASPARTATE AMINO TRANSFERASE 20 Units/L (15-37); BLOOD UREA NITROGEN 14 mg/dL (7-18); CALCIUM 8.4 mg/dL (8.5-10.1); CARBON DIOXIDE 26.6 mmol/L (21-32); CHLORIDE 109 mmol/L (98-107); COR CA(FOR HYPOALB) 9.4 mg/dL (8.5-10.1); SODIUM 144 mmol/L (136-145); TOTAL PROTEIN 7.1 g/dL (6.4-8.2); eGFR NON BLACK RACES > 60 (>60)
[2021-11-04] MEDS: ATIVAN TAB 1 MG PO PRN ×2 (05:46→19:27)
[2021-11-04] MEDS: NS 1,000 ML IV 1,000 ML IV SCH ×2 (05:46→18:20)
[2021-11-04] MEDS: DILAUDID INJ IVP PRN ×2 (05:47→19:27)
--- NOTE | 2021-11-04 07:42 | RAD ---
HISTORYF/U LEFT PNEUMOTHORAXSTUDYCHEST, 1 [id number]/28/2022.TECHNIQUEAP view of the chestFINDINGSCardiac and mediastinal contours are within normal limits. Left chest thoracostomy tube in stable position. There is mild interval worsening of the small left pneumothorax, with 1.7 cm of pleural separation at the inferior left jose g thorax compared to 1.5 cm on prior. This measurement difference could be due to differences in rotation between the exams. No definite tension. Stable right medial base opacity. Stable subcutaneous emphysema in the left chest wall.IMPRESSIONMild worsening in small left pneumothorax. This could be due to differences in patient rotation however.Electronically signed by: Eran Julian (Nov 04, 2021 07:40:46)
[2021-11-04] MEDS: LOVENOX INJ 40 MG SYR SC SCH (08:24)
[2021-11-04] MEDS: PERCOCET TAB 5/325 MG PO PRN (11:15)
--- NOTE | 2021-11-04 11:58 | RAD ---
HISTORYFOLLOW UP PNEUMOTHORAXSTUDYCHEST, 1 VIEWCOMPARISONSame day chest radiograph.TECHNIQUEAP view of the chestFINDINGSThere is continued worsening of the left-sided pneumothorax now with approximately 4.2 cm of pleural separation versus 2.7 cm at similar location on prior study. There is mild depression of the left hemidiaphragm relative to prior study. Left thoracostomy tube appears in similar position. The heart is normal in size. Similar left medial base opacity.IMPRESSIONWorsened now moderate-sized left pneumothorax with findings suggesting tension component with mildly depressed left hemidiaphragm relative to prior study.Electronically signed by: Eran Julian (Nov 04, 2021 11:57:39)
[2021-11-04] MEDS: NORCO 7.5/325 MG TAB PO PRN (13:36)
[2021-11-05] MEDS: NS 1,000 ML IV 1,000 ML IV SCH ×3 (05:45→20:43)
[2021-11-05 06:39] LABS: BASOPHILS % (AUTO) 0.3 % (0.2-1.0); EOSINOPHILS # (AUTO) 0.4 x10^3/uL (0.0-0.2); EOSINOPHILS % (AUTO) 6.1 % (0.9-2.9); HEMATOCRIT 36.1 % (42.0-54.0); HEMOGLOBIN 12.1 g/dL (13.5-18.0); LYMPHOCYTES % (AUTO) 27.9 % (21.0-51.0); MEAN CORPUSCULAR HEMOGLOBIN 28.6 pg (27.0-34.0); MEAN CORPUSCULAR HGB CONC 33.6 g/dL (33.0-35.0); MEAN CORPUSCULAR VOLUME 85.1 fL (80.0-100.0); MEAN PLATELET VOLUME 8.2 fL (7.4-11.0); MONOCYTES # (AUTO) 0.6 x10^3/uL (0.3-0.8); MONOCYTES % (AUTO) 8.1 % (0.0-13.0); NEUTROPHILS % (AUTO) 57.6 % (42.0-75.0); RED BLOOD COUNT 4.24 X10^6/uL (4.7-6.0); RED CELL DISTRIBUTION WIDTH 13.5 % (11.6-16.5)
[2021-11-05 07:12] LABS: ALANINE AMINOTRANSFERASE 20 Units/L (12-78); ALBUMIN 2.9 g/dL (3.4-5.0); ALKALINE PHOSPHATASE 110 Units/L (46-116); ASPARTATE AMINO TRANSFERASE 24 Units/L (15-37); BLOOD UREA NITROGEN 16 mg/dL (7-18); CALCIUM 8.9 mg/dL (8.5-10.1); CARBON DIOXIDE 27.2 mmol/L (21-32); CHLORIDE 107 mmol/L (98-107); COR CA(FOR HYPOALB) 9.8 mg/dL (8.5-10.1); CREATININE 1.01 mg/dL (0.70-1.30); SODIUM 140 mmol/L (136-145); TOTAL PROTEIN 7.4 g/dL (6.4-8.2); eGFR NON BLACK RACES > 60 (>60)
--- NOTE | 2021-11-05 07:20 | RAD ---
HISTORYFollow-up pneumothoraxSTUDYChest AP [id number]/01/2022FINDINGSHear t size is normal. Terri are normal. Lungs are free of acute infiltrates. There is a left chest tube in place. There has been a significant decrease in the size of the patient's left pneumothorax with a small residual left apical pneumothorax present. No pleural effusion identified. Bony thorax is unremarkable.IMPRESSIONSignificant improvement in the left pneumothorax with only a residual apical pneumothorax remainingNo definite infiltratesElectronically signed by: KATHLEEN FINLEY (Nov 05, 2021 07:19:10)
[2021-11-05] MEDS: LOVENOX INJ 40 MG SYR SC SCH (08:37)
[2021-11-05] MEDS: NORCO 7.5/325 MG TAB PO PRN (10:35)
[2021-11-05] MEDS: PERCOCET TAB 5/325 MG PO PRN ×2 (10:35→20:45)
--- NOTE | 2021-11-05 12:54 | NOTE.SOAP ---
Soap Note Note for Day of Date of Exam: 11/04/21 Subjective Data Subjective Data: No shortness of breath . No air leak. Objective Data Temperature: 98.6 F Pulse Rate: 76 Respiratory Rate: 16 Blood Pressure: 131/74 O2 Sat by Pulse Oximetry: 97 Objective Data: CXR shows increase of size on pneumothorax on water seal. Assessment Assessment: Place chest tube back to suction and will need 2 nd chest tube to be placed in the apex. Plan Plan: See above
--- NOTE | 2021-11-05 16:25 | DR.PROGNOT ---
Hospital Progress Notes - Progress Note for Day of: Progress Note Date: 11/05/21 - Chief Complaint Chief Complaint: modedrate Lt chest pain. no SOB . eary pneuomothorax had resolved with applying suction .. to keep the suction on the CT . for now .. - Past Medical Family Social History Past Med/Fam/Surg Hx: No changes since H&P Allergies: Allergies No Known Drug Allergies Allergy (Verified 10/30/21 21:13) - Review Of Systems ROS: No change since H&P - Vital Signs Vital Signs: Temperature 98.8 F Pulse Rate [Right Brachial] 97 Pulse Rate 76 Respiratory Rate 20 Blood Pressure [Right Arm] 162/89 Blood Pressure 131/74 O2 Sat by Pulse Oximetry 95 - Physical Exam Oriented: Normal, Time, Person, Place Eyes: Normal Ear: Normal Nose: Normal Throat: Normal Respiratory: OTHER (clear lung both sides .) Cardiovascular: Normal : Normal GI:Auscultation: Normal GI:Palpation: Normal GI: Tenderness: Normal Skin: Normal Musculoskeletal: Normal Psychiatric: Normal Mood Description: Anxious Speech Pattern: Clear, Appropriate - Laboratory and Diagnostics Result Diagrams: 11/05/21 05:16 11/05/21 05:16 Labs: Laboratory WBC 7.0 X10^3/uL (3.6-10.0) 11/05/21 05:16 RBC 4.24 X10^6/uL (4.7-6.0) L 11/05/21 05:16 Hgb 12.1 g/dL (13.5-18.0) L 11/05/21 05:16 Hct 36.1 % (42.0-54.0) L 11/05/21 05:16 MCV 85.1 fL (80.0-100.0) 11/05/21 05:16 MCH 28.6 pg (27.0-34.0) 11/05/21 05:16 MCHC 33.6 g/dL (33.0-35.0) 11/05/21 05:16 RDW 13.5 % (11.6-16.5) 11/05/21 05:16 Plt Count 127 X10^3/uL (150.0-450.0) L 11/05/21 05:16 Plt Count Comment Decreased (ADEQUATE) 11/02/21 06:15 MPV 8.2 fL (7.4-11.0) 11/05/21 05:16 Neut % (Auto) 57.6 % (42.0-75.0) 11/05/21 05:16 Lymph % (Auto) 27.9 % (21.0-51.0) 11/05/21 05:16 [place] % (Auto) 8.1 % (0.0-13.0) 11/05/21 05:16 Eos % (Auto) 6.1 % (0.9-2.9) H 11/05/21 05:16 Baso % (Auto) 0.3 % (0.2-1.0) 11/05/21 05:16 Neut # (Auto) 4.0 x10^3/uL (2.2-4.8) 11/05/21 05:16 Lymph # (Auto) 2.0 X10^3/uL (1.3-2.9) 11/05/21 05:16 [place] # (Auto) 0.6 x10^3/uL (0.3-0.8) 11/05/21 05:16 Eos # (Auto) 0.4 x10^3/uL (0.0-0.2) H 11/05/21 05:16 Baso # (Auto) 0.0 X10^3/uL (0.0-0.1) 11/05/21 05:16 Absolute Nucleated RBC 0.0 /100WBC 11/05/21 05:16 Plt Clumps, EDTA Moderate 11/02/21 06:15 Plt Morphology Comment Abnormal (NORMAL) 11/02/21 06:15 RBC Morphology Normal (NORMAL) 11/02/21 06:15 D-Dimer 2.30 ug/ml (0.0-0.57) H* 10/30/21 21:45 Sodium 140 mmol/L (136-145) 11/05/21 05:16 Corrected Sodium TNP 11/05/21 05:16 Potassium 4.7 mmol/L (3.5-5.1) 11/05/21 05:16 Chloride 107 mmol/L (98-107) 11/05/21 05:16 Carbon Dioxide 27.2 mmol/L (21-32) 11/05/21 05:16 BUN 16 mg/dL (7-18) 11/05/21 05:16 Creatinine 1.01 mg/dL (0.70-1.30) 11/05/21 05:16 Est GFR (MDRD) Af Amer > 60 (>60) 11/05/21 05:16 Est GFR (MDRD) Non-Af > 60 (>60) 11/05/21 05:16 Glucose 91 mg/dL (65-99) 11/05/21 05:16 Calcium 8.9 mg/dL (8.5-10.1) 11/05/21 05:16 Corrected Calcium 9.8 mg/dL (8.5-10.1) 11/05/21 05:16 Total Bilirubin 0.30 mg/dL (0.2-1.0) 11/05/21 05:16 AST 24 Units/L (15-37) 11/05/21 05:16 ALT 20 Units/L (12-78) 11/05/21 05:16 Alkaline Phosphatase 110 Units/L (46-116) 11/05/21 05:16 Creatine Kinase 56 Units/L (39-308) 10/30/21 21:45 CK-MB (CK-2) 1.2 ng/mL (0-4.0) 10/30/21 21:45 CK/CKMB % Calc 2.1 % (<4) 10/30/21 21:45 Troponin I High Sens 9.7 ng/L (4.0-60.0) 10/30/21 21:45 Total Protein 7.4 g/dL (6.4-8.2) 11/05/21 05:16 Albumin 2.9 g/dL (3.4-5.0) L 11/05/21 05:16 Globulin 4.5 g/dL (2.5-4.5) 11/05/21 05:16 Albumin/Globulin Ratio 0.6 Ratio (1.1-2.1) L 11/05/21 05:16 SARS CoV-2 RNA Rapid MALIK Negative (NEGATIVE) 10/30/21 21:53 - Assessment and Plan 1: spontaneous Lt pneumothorax . S/P placement of chest. suction was slightly increased and will repeat chest X Ray in am .. - Problem Patient Problems: Patient Problems Spontaneous pneumothorax (Acute) J93.83 Chest pain (Acute) R07.9 Dyspnea (Acute) R06.00
[2021-11-05] MEDS: TORADOL 15 MG VIAL IVP PRN (18:35)
[2021-11-05] MEDS: ATIVAN TAB 1 MG PO PRN (20:45)
[2021-11-06] MEDS: TORADOL 15 MG VIAL IVP PRN ×4 (00:15→20:54)
[2021-11-06] MEDS: NS 1,000 ML IV 1,000 ML IV SCH ×2 (01:06→14:05)
[2021-11-06] MEDS: NORCO 7.5/325 MG TAB PO PRN (03:18)
[2021-11-06] MEDS: PERCOCET TAB 5/325 MG PO PRN ×2 (05:29→18:00)
[2021-11-06] MEDS: LOVENOX INJ 40 MG SYR SC SCH (09:54)
[2021-11-06 11:34] VITALS: BMI 24.0
[2021-11-06] MEDS: ATIVAN TAB 1 MG PO PRN (20:54)
[2021-11-06] MEDS: DILAUDID INJ IVP PRN (22:10)
--- NOTE | 2021-11-06 23:39 | NOTE.SOAP ---
Soap Note Note for Day of Date of Exam: 11/06/21 Subjective Data Subjective Data: Chest tube in good position with 290 cc of serous fluid out last 24 hours. Objective Data Temperature: 98.6 F Pulse Rate: 96 Respiratory Rate: 18 Blood Pressure: 124/82 O2 Sat by Pulse Oximetry: 97 Objective Data: No air leak . Assessment Assessment: left spontaneous pneumothorax Plan Plan: CXR in AM . MAy repeat on water seal if lung is up.
[2021-11-07] MEDS: PERCOCET TAB 5/325 MG PO PRN ×3 (00:43→23:53)
[2021-11-07] MEDS: NS 1,000 ML IV 1,000 ML IV SCH ×4 (03:07→15:15)
[2021-11-07] MEDS: DILAUDID INJ IVP PRN ×4 (05:30→20:38)
--- NOTE | 2021-11-07 06:05 | RAD ---
HISTORYFollow-up pneumothoraxSTUDYChest AP [id number]/02/2022FINDINGSHear t size is normal. Terri are normal. Right lung and left upper lung henao are clear. There is some subsegmental atelectasis in the left lower lobe. There is now a left pleural effusion present. Left chest tube remains in place. Left apical pneumothorax is unchanged. Minimal pneumothorax is identified along the left lateral chest wall. Bony thorax is unremarkable.IMPRESSIONNo significant change in the small residual left pneumothoraxSubsegmental atelectasis left lung baseNew small left pleural effusionElectronically signed by: KATHLEEN FINLEY (Nov 07, 2021 06:04:35)
[2021-11-07] MEDS: LOVENOX INJ 40 MG SYR SC SCH ×2 (08:43→13:11)
[2021-11-07] MEDS: COLACE CAP 100 MG PO SCH (20:38)
[2021-11-07] MEDS: MILK OF MAGNESIA PO SCH (20:38)
--- NOTE | 2021-11-07 23:21 | NOTE.SOAP ---
Soap Note Note for Day of Date of Exam: 11/07/21 Subjective Data Subjective Data: Patient resting comfortably with left chest tube in place. Objective Data Temperature: 99.6 F Pulse Rate: 97 Respiratory Rate: 20 Blood Pressure: 129/68 O2 Sat by Pulse Oximetry: 91 Objective Data: Good breath sounds on left side, Chest x-ray shows only small apical pneumothorax. No air leak. Assessment Assessment: Spontaneous left pneumothorax treated with chest tube. Plan Plan: Will consider Heimlich valve versus another chest tube. Will give trial of water seal tomorrow and repeat chest x-ray .
[2021-11-07] MEDS: ATIVAN TAB 1 MG PO PRN (23:54)
[2021-11-08] MEDS: NS 1,000 ML IV 1,000 ML IV SCH ×2 (04:09→18:11)
[2021-11-08] MEDS: DILAUDID INJ IVP PRN ×3 (05:58→21:23)
[2021-11-08] MEDS: PERCOCET TAB 5/325 MG PO PRN ×2 (08:13→19:05)
[2021-11-08] MEDS: ATIVAN TAB 1 MG PO PRN ×2 (08:14→21:22)
[2021-11-08] MEDS: MILK OF MAGNESIA PO SCH ×2 (08:15→21:22)
[2021-11-08] MEDS: LOVENOX INJ 40 MG SYR SC SCH (08:15)
[2021-11-08] MEDS: TORADOL 15 MG VIAL IVP PRN (17:20)
--- NOTE | 2021-11-08 19:45 | NOTE.SOAP ---
Soap Note Note for Day of Date of Exam: 11/08/21 Subjective Data Subjective Data: Doing well with left chest tube in Objective Data Temperature: 98.7 F Pulse Rate: 86 Respiratory Rate: 20 Blood Pressure: 130/79 O2 Sat by Pulse Oximetry: 95 Assessment Assessment: chest tube without air leak Plan Plan: chesty tube to water seal . CXR in AM
[2021-11-08] MEDS: COLACE CAP 100 MG PO SCH (21:22)
[2021-11-09] MEDS: PERCOCET TAB 5/325 MG PO PRN ×3 (00:26→23:35)
[2021-11-09] MEDS: DILAUDID INJ IVP PRN ×7 (04:04→22:03)
--- NOTE | 2021-11-09 06:02 | RAD ---
HISTORYFollow-up pneumothoraxSTUDYAP [id number]/04/2022FINDINGSPersist ent left pleural effusion with possible underlying airspace process in the obscured left lower lung. No change in position of left chest tube. A significant pneumothorax is not identified on this image. Heart size remains normal with clear right lung.IMPRESSIONNo definite pneumothorax now identified. Persistent pleural-parenchymal findings at the left base, similar to prior.Electronically signed by: GINA KHANNA (Nov 09, 2021 05:59:50)
[2021-11-09] MEDS: MILK OF MAGNESIA PO SCH ×2 (08:48→21:39)
[2021-11-09] MEDS: ZOFRAN INJ 4 MG VIAL IVP PRN ×2 (08:52→21:39)
[2021-11-09] MEDS: NS 1,000 ML IV 1,000 ML IV SCH ×2 (08:53→23:35)
[2021-11-09] MEDS ORDERED: NS IRRIGATION* 500 ML IR ONE (09:24)
[2021-11-09] MEDS ORDERED: STERILE WATER IRRIGATION IR ONE (09:24)
[2021-11-09 11:01] LABS: BASOPHILS # (AUTO) 0.1 X10^3/uL (0.0-0.1); BASOPHILS % (AUTO) 0.6 % (0.2-1.0); EOSINOPHILS # (AUTO) 0.2 x10^3/uL (0.0-0.2); EOSINOPHILS % (AUTO) 1.8 % (0.9-2.9); HEMOGLOBIN 10.5 g/dL (13.5-18.0); LYMPHOCYTES # (AUTO) 1.5 X10^3/uL (1.3-2.9); LYMPHOCYTES % (AUTO) 15.1 % (21.0-51.0); MEAN CORPUSCULAR HEMOGLOBIN 28.7 pg (27.0-34.0); MEAN CORPUSCULAR HGB CONC 33.9 g/dL (33.0-35.0); MEAN CORPUSCULAR VOLUME 84.7 fL (80.0-100.0); MEAN PLATELET VOLUME 7.5 fL (7.4-11.0); MONOCYTES % (AUTO) 9.7 % (0.0-13.0); NEUTROPHILS # (AUTO) 7.2 x10^3/uL (2.2-4.8); NEUTROPHILS % (AUTO) 72.8 % (42.0-75.0); RED BLOOD COUNT 3.66 X10^6/uL (4.7-6.0); WHITE BLOOD COUNT 9.9 X10^3/uL (3.6-10.0)
[2021-11-09] MEDS: LOVENOX INJ 40 MG SYR SC SCH (11:26)
--- NOTE | 2021-11-09 11:39 | NOTE.SOAP ---
Soap Note Note for Day of Date of Exam: 11/09/21 Subjective Data Subjective Data: Patient had been doing well .
--- NOTE | 2021-11-09 11:48 | RAD ---
HISTORYBleeding out of chest tube hx: spontaneous pneumothorax.brsx: ortho, chest tubeSTUDYCHEST, 1 VIEWCOMPARISONChest x-ray dated same day at 5:27 a.m.FINDINGSThe trachea is midline. The cardiac silhouette is obscured but unchanged. Stable appearing left chest tube. The right lung is clear. Markedly increased pleural effusion with associated compressive atelectasis versus infiltrate. Small persistent left apical pneumothorax. The bony thorax is unremarkable.IMPRESSIONMarkedly increased left pleural effusion given patient history, this may represent chest tube erosion into adjacent vessel with associated hemothorax. Recommend dedicated CT of the chest with contrast for further characterization..Electronically signed by: YASHIRA LANCASTER (Nov 09, 2021 11:46:26)
[2021-11-09] MEDS ORDERED: KETAMINE 50 MG/5 ML-NACL SYRNG ONE (12:04)
[2021-11-09] MEDS ORDERED: VERSED ONE ×2 (12:05→14:10)
[2021-11-09] MEDS ORDERED: FENTANYL VIAL INJ 100 mcg ONE (12:21)
[2021-11-09] MEDS ORDERED: OFIRMEV IV 1000 MG VIAL 1,000 MG/100 ML VIAL IV ONE (12:31)
[2021-11-09] MEDS ORDERED: PEPCID 20 MG VIAL ONE (12:31)
[2021-11-09] MEDS ORDERED: ZOFRAN INJ 4 MG VIAL ONE (12:31)
[2021-11-09] MEDS ORDERED: LR 1,000 ML IV 1,000 ML IV ONE (12:43)
[2021-11-09] MEDS ORDERED: XYLOCAINE 2 % (PLAIN) ONE (12:44)
[2021-11-09] MEDS ORDERED: TORADOL 30 MG VIAL ONE (13:03)
[2021-11-09] MEDS ORDERED: DECADRON INJ ONE (13:03)
[2021-11-09] MEDS ORDERED: DIPRIVAN VIAL 20 ML ONE ×3 (13:05→13:44)
[2021-11-09] MEDS ORDERED: BETADINE SOLN ONE (13:05)
[2021-11-09] MEDS ORDERED: ANCEF VIAL 1 GRAM ONE (13:08)
[2021-11-09] MEDS ORDERED: MARCAINE 0.5% ONE (13:17)
[2021-11-09] MEDS ORDERED: DILAUDID INJ ONE ×2 (13:38→14:21)
[2021-11-09] MEDS ORDERED: EPHEDRINE SULFATE INJ ONE (13:48)
[2021-11-09] MEDS ORDERED: BENADRYL INJ 50 MG VIAL IVP PRN (14:11)
[2021-11-09] MEDS ORDERED: PHENERGAN INJ 25 MG IM PRN (14:11)
--- NOTE | 2021-11-09 14:13 | OR.IMMED ---
IMMEDIATE POST-OP NOTE Immediate Post-Op Note Pre-Op Diagnosis: LEFT HEMO THORAX Post-Op Diagnosis: SAME , PROBABLY FROM SKIN BLEEDER EMPTYING INTO THE CHEST Procedure: EVACUATION LEFT HEMOTHORAX, PLACE APICAL AND BASILAR CHEST TUBES Description of Procedure: SEE OPERATIVE SUMMARY Surgeon/Dye Maker: BOB Findings: ABOVE Specimens Removed: CLOT LEFT CHEST Estimated Blood Loss: OLD BLOOD 300 CC, NEW BLEEDING MINIMAL Drains: Chest Tube (36 FR CHEST TUBE LEFT CHEST BASE IS KINKED BUT WITH EXCELLENT RESPIRATOR VARIATION, 32 FR CHEST TUBE AT APEX ) Complications: NONE Discharge Progress Notes: RETURN TO 2ND FLOOR, OBTAIN CHEST CT WITH CONTRAST TO MAKE SURE HE DOES NOT HAVE BLEEDING VESSEL IN CHEST. Condition: Stable Final Diagnosis: ABOVE
[2021-11-09] MEDS ORDERED: NS 100 ML IV 100 ML ONE (14:20)
--- NOTE | 2021-11-09 14:23 | RAD ---
HISTORYChest Tube Placement hx: spontaneous pneumothorax.brsx: ortho, chest tubeSTUDYCHEST, 1 VIEWCOMPARISONChest x-ray dated same day at 10:13 a.m.FINDINGSInterval placement of a left upper lung chest tube that appears to be in good position. The left lower chest tube has been repositioned but has a kink within it. The trachea is midline. The cardiac silhouette is unremarkable. Markedly decreased left pleural effusion which may be loculated given its lobular appearance. Persistent small left pneumothorax. The right lung is clear. The bony thorax is unremarkable.IMPRESSIONOne. Newly placed left upper chest tube appears to be in good position with markedly decreased left pleural effusion that may be loculated.Two. Left lower chest tube has a kink in it and may be nonfunctional.Electronically signed by: YASHIRA LANCASTER (Nov 09, 2021 14:21:19)
--- NOTE | 2021-11-09 15:05 | NOTE.SOAP ---
Soap Note Note for Day of Date of Exam: 11/09/21 Subjective Data Subjective Data: Called this A. M. about the patient Around 9. Patient had been submitted last week with a spontaneous left pneumothorax requiring chest tube and have had recurrent pneumothorax when place to Water Seal. Place to Water Seal yesterday and chest x-ray this morning showed no obvious pneumothorax with evidence of small pleural effusion. I was notified by the nurses that he began to bleed around the chest tube site which is unusual. Repeat chest x-ray was consistent with hemothorax. Significant bleeding noted around left chest tube site at skin edge. Repeat Hgb was 10. 5. CXR different from CXR done earlier consistent with hemothorax. Objective Data Pulse Rate: 78 Respiratory Rate: 22 Blood Pressure: 110/60 O2 Sat by Pulse Oximetry: 99 Objective Data: as above Assessment Assessment: New left hemothorax, In OR old clot removed left chest and there was no further active bleeding. Apical and basilar chest tubes placed and he will have CT of chest with IV contrast to r/o any bleeding vessel in the chest, which I doubt. CXR after chest tubes show some kinking of the basilar chest tube but it is draining well with excellent respiratory variation. I will leave it as it is for now. In addition to Chest CT will do sequential CBC. Plan Plan: see assessment above .
[2021-11-09] MEDS ORDERED: MORPHINE SULFATE PCA 30 MG ONE ×3 (15:09→15:20)
[2021-11-09] MEDS ORDERED: MORPHINE SULFATE PCA 30 MG IVP PRN ×2 (15:11→15:46)
--- NOTE | 2021-11-09 17:08 | CT ---
HISTORYChest tube placement in OR- Checking for leakageSTUDYCHEST WITH CONCOMPARISONFebruary 2021TECHNIQUEAxial CT images of the chest were obtained after the administration of IV contrast. Images were reformatted into the coronal and sagittal planes for further evaluation.Radiation dose: 465.00 mGy-cm total DLPFINDINGSNo pericardial effusion.Aorta and pulmonary arteries are normal in caliber.No hilar or mediastinal adenopathy.Thyroid appears normal.Central airways are widely patent.Esophagus appears normal.Diffuse fatty infiltration of the liver.Otherwise, the limited evaluation of the upper abdomen is unremarkable.Moderate left layering complex pleural fluid collection.Two left chest tubes in place.Persistent left 10 percent pneumothorax; without midline shift.Small amount of gas along the margins of both chest tubes in the thoracic wall.Small amount of left thoracic wall subcutaneous emphysema.Atelectasis at the right lung base.Right lung is clear focal airspace disease.No acute osseous abnormality.IMPRESSION1. Two left chest tubes in place with a 10 percent left hemopneumothorax. Gas in the thoracic wall adjacent to the chest to could represent a site of an air leak.2. Diffuse fatty infiltration of the liver.Electronically signed by: Salvador Beltran (Nov 09, 2021 17:06:26)
[2021-11-09 18:06] LABS: BASOPHILS % (AUTO) 0.3 % (0.2-1.0); HEMATOCRIT 26.6 % (42.0-54.0); HEMOGLOBIN 9.1 g/dL (13.5-18.0); MEAN CORPUSCULAR VOLUME 85.3 fL (80.0-100.0); RED BLOOD COUNT 3.12 X10^6/uL (4.7-6.0)
[2021-11-09 18:10] LABS: EOSINOPHILS % (AUTO) 0.1 % (0.9-2.9); LYMPHOCYTES # (AUTO) 0.8 X10^3/uL (1.3-2.9); LYMPHOCYTES % (AUTO) 7.2 % (21.0-51.0); MEAN CORPUSCULAR HEMOGLOBIN 29.1 pg (27.0-34.0); MEAN CORPUSCULAR HGB CONC 34.1 g/dL (33.0-35.0); MEAN PLATELET VOLUME 7.7 fL (7.4-11.0); MONOCYTES # (AUTO) 0.7 x10^3/uL (0.3-0.8); MONOCYTES % (AUTO) 6.2 % (0.0-13.0); NEUTROPHILS # (AUTO) 9.2 x10^3/uL (2.2-4.8); NEUTROPHILS % (AUTO) 86.2 % (42.0-75.0); RED CELL DISTRIBUTION WIDTH 13.1 % (11.6-16.5); WHITE BLOOD COUNT 10.7 X10^3/uL (3.6-10.0)
[2021-11-09 18:30] LABS: PLATELET MORPHOLOGY COMMENT NORMAL (NORMAL)
[2021-11-09] MEDS: TORADOL 15 MG VIAL IVP PRN (18:33)
[2021-11-09] MEDS: COLACE CAP 100 MG PO SCH (21:39)
[2021-11-09] MEDS: ATIVAN TAB 1 MG PO PRN (23:35)
[2021-11-10] MEDS: DILAUDID INJ IVP PRN ×2 (01:52→20:48)
[2021-11-10] MEDS: TORADOL 15 MG VIAL IVP PRN ×2 (07:17→16:30)
[2021-11-10 07:36] LABS: BASOPHILS % (AUTO) 0.4 % (0.2-1.0); EOSINOPHILS % (AUTO) 0.1 % (0.9-2.9); HEMATOCRIT 31.1 % (42.0-54.0); HEMOGLOBIN 10.7 g/dL (13.5-18.0); LYMPHOCYTES % (AUTO) 11.1 % (21.0-51.0); MEAN CORPUSCULAR HEMOGLOBIN 29.2 pg (27.0-34.0); MEAN CORPUSCULAR HGB CONC 34.4 g/dL (33.0-35.0); MEAN CORPUSCULAR VOLUME 84.9 fL (80.0-100.0); MEAN PLATELET VOLUME 7.9 fL (7.4-11.0); MONOCYTES # (AUTO) 0.5 x10^3/uL (0.3-0.8); MONOCYTES % (AUTO) 5.4 % (0.0-13.0); NEUTROPHILS # (AUTO) 7.4 x10^3/uL (2.2-4.8); RED BLOOD COUNT 3.66 X10^6/uL (4.7-6.0); RED CELL DISTRIBUTION WIDTH 13.1 % (11.6-16.5); WHITE BLOOD COUNT 8.9 X10^3/uL (3.6-10.0)
[2021-11-10] MEDS: MILK OF MAGNESIA PO SCH ×2 (08:55→20:44)
[2021-11-10] MEDS: LOVENOX INJ 40 MG SYR SC SCH (08:55)
[2021-11-10] MEDS: ATIVAN TAB 1 MG PO PRN ×2 (08:57→20:45)
[2021-11-10] MEDS: NS 1,000 ML IV 1,000 ML IV SCH ×2 (11:30→22:03)
--- NOTE | 2021-11-10 17:34 | NOTE.SOAP ---
Soap Note Note for Day of Date of Exam: 11/10/21 Subjective Data Subjective Data: Admitted with spontaneous left pneumothorax and had left hemothorax yesterday requiring evacuation and placement of [address] showed no obvious bleeding vessel. Morphine CINETECHNICIAN was not effective . Using IV Dilaudid intermittently. Objective Data Temperature: 98.2 F Pulse Rate: 81 Respiratory Rate: 20 Blood Pressure: 139/74 O2 Sat by Pulse Oximetry: 93 Objective Data: Left chest dressing with no bleeding , Hgb= 10.7 Total chest tube output = 375 cc Continue Assessment Assessment: Left hemo-pneumothorax Plan Plan: Continue both chest tubes to suction . Check CXR in AM.
--- NOTE | 2021-11-10 18:34 | DR.OPNOTE ---
OP NOTE Pre-Op Diagnosis: Left hemopneumothorax Post-Op Diagnosis: same Procedure Date Date Of Procedure: 11/09/21 Procedure: PROCEDURE: evacuation of left thorax, placement two chest tubes. NARRATIVE: The patient was taken to the operative suite and placed in the Supine position. The anterior chest tube which had bleeding around it was removed and the left chest prepped and draped in sterile fashion. Patient had been given IV sedation. Eight cc's of 0. 5% Marcaine was injected in the chest tube site anteriorly. The anterior chest tube site along the anterior axillary line below the pectoralis was opened wider with a 15 knife blade. Yankauer sucker used to suction blood from the left chest. I could visualize the lung and feel the diaphragm. There was significant clot and I used a ring forceps to remove this and irrigated and suctioned it free. Skin overlying the mid axillary 7th intercostal space was infiltrated with 0. 5% Marcaine and a 3 cm incision made . Hemostat used to used enter the left chest through the 7th intercostal space posteriorly along the diaphragm and 36 Fr chest tube placed and secured to the skin with a zero silk suture ligature . A 32 [place] chest tube was placed through the anterior left chest wall incision and placed all the way to the apex of the left chest cavity . The muscle and subcutaneous tissue around it closed with interrupted 3-0 Vicryl subcutaneous sutures and the skin closed with the interrupted 4-0 Nylon sutures. The chest tube secured to the skin with a 0 silk suture ligature. The patient was taken to the recovery room in good condition and post procedure chest x-ray showed good placement of the chest tube with no pneumothorax. Chest tube was connected to its own suction /collection device. Type of Anesthesia: Local Anesthesia Comment: plus MAC Findings: left hemopneumothorax , Appears to originate from blood from the skin incision falling into the left chest. No active bleeding in the left chest Specimen/Pathology: clot left lung pleural space Type of Fluids Used:: Lactated Ringers EBL: minimal New Blood. Approximately 300 CC's old blood from the left chest Drains/Tubes Placed: Chest Tube (36 chest tube placed posteriorly along the diaphragm, 32 [place] chest tube placed anteriorly in the apex of the pleural space ) Complications:: none Needle/Sponge Count:: correct Disposition/Condition: Pt. tolerated procedure without difficulty. Taken to PACU in stable condition.
[2021-11-10] MEDS: COLACE CAP 100 MG PO SCH (20:44)
[2021-11-10] MEDS: PERCOCET TAB 5/325 MG PO PRN (23:39)
[2021-11-11] MEDS: DILAUDID INJ IVP PRN ×4 (01:38→22:41)
[2021-11-11] MEDS: NS 1,000 ML IV 1,000 ML IV SCH ×3 (01:39→17:30)
[2021-11-11] MEDS: TORADOL 15 MG VIAL IVP PRN ×3 (05:03→20:39)
[2021-11-11 05:35] LABS: BASOPHILS % (AUTO) 0.3 % (0.2-1.0); EOSINOPHILS % (AUTO) 0.5 % (0.9-2.9); HEMATOCRIT 24.9 % (42.0-54.0); HEMOGLOBIN 8.6 g/dL (13.5-18.0); MEAN CORPUSCULAR HEMOGLOBIN 29.3 pg (27.0-34.0); MEAN CORPUSCULAR HGB CONC 34.6 g/dL (33.0-35.0); MEAN CORPUSCULAR VOLUME 84.6 fL (80.0-100.0); MEAN PLATELET VOLUME 7.9 fL (7.4-11.0); MONOCYTES # (AUTO) 0.5 x10^3/uL (0.3-0.8); MONOCYTES % (AUTO) 6.6 % (0.0-13.0); NEUTROPHILS # (AUTO) 6.4 x10^3/uL (2.2-4.8); NEUTROPHILS % (AUTO) 79.6 % (42.0-75.0); RED BLOOD COUNT 2.95 X10^6/uL (4.7-6.0); RED CELL DISTRIBUTION WIDTH 13.2 % (11.6-16.5); WHITE BLOOD COUNT 8.1 X10^3/uL (3.6-10.0)
[2021-11-11 05:36] LABS: ALANINE AMINOTRANSFERASE 42 Units/L (12-78); ALKALINE PHOSPHATASE 148 Units/L (46-116); ASPARTATE AMINO TRANSFERASE 38 Units/L (15-37); BLOOD UREA NITROGEN 20 mg/dL (7-18); CALCIUM 8.1 mg/dL (8.5-10.1); CARBON DIOXIDE 25.3 mmol/L (21-32); CHLORIDE 108 mmol/L (98-107); COR CA(FOR HYPOALB) 9.7 mg/dL (8.5-10.1); CREATININE 1.04 mg/dL (0.70-1.30); SODIUM 141 mmol/L (136-145); TOTAL PROTEIN 6.3 g/dL (6.4-8.2); eGFR NON BLACK RACES > 60 (>60)
--- NOTE | 2021-11-11 05:53 | RAD ---
PROCEDURE: Chest X-ray 1 View .HISTORY: LEFT HEMO-PNEUMOTHORAX .TECHNIQUE: AP view .COMPARISON: 11/09/2021.TECHNICAL QUALITY: Satisfactory .FINDINGS:Chest tube on the left at the apex and at the base is unchanged.Unremarkable cardio mediastinal silhouette and normal central vascularity.Improved aeration left lung base with continued consolidations/atelectasis may be related to pulmonary contusion. No evidence of a pneumothorax. Right lung henao clear.IMPRESSION:1. Improved aeration left lung base with continued consolidations/atelectasis could be related to pulmonary contusion.2. No pneumothorax.3. No other acute change identified.Electronically signed by: Gualberto Fisher (Nov 11, 2021 05:52:21)
[2021-11-11] MEDS: MILK OF MAGNESIA PO SCH ×2 (08:45→20:39)
[2021-11-11] MEDS: PERCOCET TAB 5/325 MG PO PRN ×2 (08:45→14:30)
[2021-11-11] MEDS: LOVENOX INJ 40 MG SYR SC SCH (08:47)
[2021-11-11] MEDS: COLACE CAP 100 MG PO SCH (20:38)
[2021-11-11] MEDS: ATIVAN TAB 1 MG PO PRN (20:43)
--- NOTE | 2021-11-12 00:49 | NOTE.SOAP ---
Soap Note Note for Day of Date of Exam: 11/11/21 Subjective Data Subjective Data: This is my note for 11/11/2021. PATIENT much more comfotable. Objective Data Temperature: 100.1 F Pulse Rate: 83 Respiratory Rate: 20 Blood Pressure: 118/73 O2 Sat by Pulse Oximetry: 91 Objective Data: CXR shows all blood evacuated from the left chest and no pneumothorax. total of 70 cc out 0f chest tubes. Assessment Assessment: Left hemo-pneumothrax Plan Plan: Check CXR on water seal in the AM .May go home with chest tubes in place
[2021-11-12] MEDS: NS 1,000 ML IV 1,000 ML IV SCH ×3 (01:12→13:48)
[2021-11-12] MEDS: DILAUDID INJ IVP PRN ×2 (02:42→08:17)
[2021-11-12] MEDS: PERCOCET TAB 5/325 MG PO PRN ×2 (05:11→11:44)
[2021-11-12 05:40] LABS: BASOPHILS % (AUTO) 0.2 % (0.2-1.0); EOSINOPHILS # (AUTO) 0.1 x10^3/uL (0.0-0.2); EOSINOPHILS % (AUTO) 0.8 % (0.9-2.9); HEMATOCRIT 26.3 % (42.0-54.0); HEMOGLOBIN 9.2 g/dL (13.5-18.0); LYMPHOCYTES # (AUTO) 1.5 X10^3/uL (1.3-2.9); LYMPHOCYTES % (AUTO) 13.4 % (21.0-51.0); MEAN CORPUSCULAR HEMOGLOBIN 28.9 pg (27.0-34.0); MEAN CORPUSCULAR HGB CONC 34.8 g/dL (33.0-35.0); MEAN CORPUSCULAR VOLUME 83.1 fL (80.0-100.0); MEAN PLATELET VOLUME 7.5 fL (7.4-11.0); MONOCYTES # (AUTO) 0.7 x10^3/uL (0.3-0.8); MONOCYTES % (AUTO) 6.5 % (0.0-13.0); NEUTROPHILS # (AUTO) 8.7 x10^3/uL (2.2-4.8); NEUTROPHILS % (AUTO) 79.1 % (42.0-75.0); RED BLOOD COUNT 3.17 X10^6/uL (4.7-6.0); RED CELL DISTRIBUTION WIDTH 12.6 % (11.6-16.5)
[2021-11-12 05:53] LABS: ALANINE AMINOTRANSFERASE 57 Units/L (12-78); ALBUMIN 2.1 g/dL (3.4-5.0); ALKALINE PHOSPHATASE 231 Units/L (46-116); ASPARTATE AMINO TRANSFERASE 50 Units/L (15-37); BLOOD UREA NITROGEN 15 mg/dL (7-18); CALCIUM 8.1 mg/dL (8.5-10.1); CARBON DIOXIDE 23.1 mmol/L (21-32); CHLORIDE 102 mmol/L (98-107); COR CA(FOR HYPOALB) 9.6 mg/dL (8.5-10.1); SODIUM 134 mmol/L (136-145); TOTAL PROTEIN 6.5 g/dL (6.4-8.2); eGFR NON BLACK RACES > 60 (>60)
[2021-11-12] MEDS: MILK OF MAGNESIA PO SCH (08:17)
[2021-11-12] MEDS: LOVENOX INJ 40 MG SYR SC SCH (08:17)
[2021-11-12] MEDS: ATIVAN TAB 1 MG PO PRN (08:17)
--- NOTE | 2021-11-12 10:15 | RAD ---
HISTORYFollow-up hemopneumothoraxSTUDYChest AP [id number]/08/2022FINDINGSHear t size is normal. Terri are normal. Right lung and left upper lung henao are clear. Increased density remains in the left lung base likely due to a subsegmental atelectasis and possibly some contusion. Two left chest tubes are in place. No definite pneumothorax is identified. Bony thorax is unremarkable.IMPRESSIONNo residual or recurrent left pneumothorax identifiedPersisting increased density left lung base likely due to subsegmental atelectasis and possibly contusion.Electronically signed by: KATHLEEN FINLEY (Nov 12, 2021 10:14:00)
[2021-11-12] MEDS ORDERED: POTASSIUM CHLORIDE LIQ 20 MEQ UDC PO PRN (13:36)
[2021-11-12] MEDS ORDERED: MAGNESIUM SULFATE 1 GRAM/100 mL PREMIX 1 G/100 ML BAG IV PRN (13:36)
[2021-11-12] MEDS ORDERED: K-RIDER 10 MEQ/NS 100 ML 10 MEQ/100 ML BAG IV PRN (13:36)
[2021-11-12] MEDS ORDERED: MICRO K EXTEN CAP 10 MEQ PO PRN (13:36)
[2021-11-12] MEDS ORDERED: POTASSIUM CHL 40 MEQ/NS 0.45% 500 ML IV PRN (13:36)
[2021-11-12] MEDS ORDERED: K-DUR TAB 20 MEQ PO PRN (13:36)
[2021-11-12] MEDS ORDERED: KLOR-CON PO PRN (13:36)
[2021-11-12] MEDS ORDERED: POTASSIUM CHL 60 MEQ/NS 0.45% 500 ML IV PRN (13:36)
[2021-11-12] MEDS: TORADOL 15 MG VIAL IVP PRN (13:43)
[2021-11-12 16:14] VITALS: BP 137/83
--- NOTE | 2021-11-12 19:25 | W.DIS.FURT ---
Summary of Discharge Discharge Summary of Date Date of Exam: 11/12/21 Admission Date Date of Admission: 10/31/21 Admission Diagnosis Patient Problems (Updated 11/09/21 @ 14:15 by Henok Yanes) Spontaneous pneumothorax (Acute) J93.83 Chest pain (Acute) R07.9 Dyspnea (Acute) R06.00 Hospital Course: 46 year old male who was evaluated in the emergency room on October 31 for increasing shortness of breath. Chest x-ray demonstrated a left spontaneous pneumothorax. He underwent left chest tube placement by myself. He had trials of water seal with recurrent pneumothorax. On November 09 his chest x-ray on water seal showed no pneumothorax however he began to have spontaneous bleeding in the skin of the chest tube site which fell into the left chest creating a left hemothorax. He was taken to the operating suite for evacuation of this hemothorax and placment of two chest tubes. He had no further active bleeding. Chest CT angiogram showed no bleeding vessels in the chest. He has done well and the blood has been evacuated from the left chest. Follow-up chest x-ray dated today shows no pneumothorax and hemothorax is evacuated with contusion of the lung of the left lower lobe. His chest tubes have been placed with Heimlich valves and he is to be discharged home with the chest tubes in place. He may shower. He will follow up with me in one week. He will be given Percocet, 5 mg tablets, one every six hours PRN pain , #30 . Vital Signs: Vital Signs (72 hours) 11/09/21 20:00 11/09/21 20:10 11/09/21 22:03 Temperature 98.0 F 97.8 F Pulse Rate Pulse Rate [Right Brachial] 73 69 Respiratory Rate 18 18 18 Blood Pressure Blood Pressure [Left Arm] Blood Pressure [Right Arm] 101/66 125/79 O2 Sat by Pulse Oximetry 96 100 11/09/21 22:33 11/09/21 23:35 11/10/21 00:00 Temperature 98.5 F Pulse Rate Pulse Rate [Right Brachial] 76 Respiratory Rate 20 18 18 Blood Pressure Blood Pressure [Left Arm] Blood Pressure [Right Arm] 143/85 O2 Sat by Pulse Oximetry 99 11/10/21 00:35 11/10/21 01:52 11/10/21 02:22 Temperature Pulse Rate Pulse Rate [Right Brachial] Respiratory Rate 18 20 18 Blood Pressure Blood Pressure [Left Arm] Blood Pressure [Right Arm] O2 Sat by Pulse Oximetry 11/10/21 04:00 11/10/21 07:17 11/10/21 07:47 Temperature 98.2 F Pulse Rate Pulse Rate [Right Brachial] 71 Respiratory Rate 18 20 18 Blood Pressure Blood Pressure [Left Arm] 135/85 Blood Pressure [Right Arm] O2 Sat by Pulse Oximetry 98 11/10/21 08:00 11/10/21 12:00 11/10/21 16:00 Temperature 97.4 F L 97.6 F 98.2 F Pulse Rate Pulse Rate [Right Brachial] 76 70 81 Respiratory Rate 18 18 20 Blood Pressure Blood Pressure [Left Arm] 142/79 134/81 139/74 Blood Pressure [Right Arm] O2 Sat by Pulse Oximetry 96 90 L 93 L 11/10/21 16:30 11/10/21 17:00 11/10/21 17:34 Temperature 98.2 F Pulse Rate 81 Pulse Rate [Right Brachial] Respiratory Rate 20 18 20 Blood Pressure 139/74 Blood Pressure [Left Arm] Blood Pressure [Right Arm] O2 Sat by Pulse Oximetry 93 L 11/10/21 20:00 11/10/21 20:30 11/10/21 20:48 Temperature 98.1 F Pulse Rate 88 Pulse Rate [Right Brachial] 82 Respiratory Rate 18 20 Blood Pressure Blood Pressure [Left Arm] 139/78 Blood Pressure [Right Arm] O2 Sat by Pulse Oximetry 97 96 11/10/21 21:18 11/10/21 23:39 11/11/21 00:00 Temperature 98.3 F Pulse Rate Pulse Rate [Right Brachial] 89 Respiratory Rate 20 20 20 Blood Pressure Blood Pressure [Left Arm] 129/76 Blood Pressure [Right Arm] O2 Sat by Pulse Oximetry 96 11/11/21 00:39 11/11/21 01:38 11/11/21 02:08 Temperature Pulse Rate Pulse Rate [Right Brachial] Respiratory Rate 20 20 20 Blood Pressure Blood Pressure [Left Arm] Blood Pressure [Right Arm] O2 Sat by Pulse Oximetry 11/11/21 04:00 11/11/21 05:03 11/11/21 05:33 Temperature 98.5 F Pulse Rate Pulse Rate [Right Brachial] 73 Respiratory Rate 20 20 20 Blood Pressure Blood Pressure [Left Arm] 129/82 Blood Pressure [Right Arm] O2 Sat by Pulse Oximetry 96 11/11/21 06:25 11/11/21 06:55 11/11/21 08:00 Temperature 98.5 F Pulse Rate Pulse Rate [Right Brachial] 77 Respiratory Rate 22 18 18 Blood Pressure Blood Pressure [Left Arm] 133/78 Blood Pressure [Right Arm] O2 Sat by Pulse Oximetry 94 L 11/11/21 08:45 11/11/21 09:45 11/11/21 11:30 Temperature Pulse Rate Pulse Rate [Right Brachial] Respiratory Rate 22 20 18 Blood Pressure Blood Pressure [Left Arm] Blood Pressure [Right Arm] O2 Sat by Pulse Oximetry 11/11/21 12:00 11/11/21 14:30 11/11/21 15:30 Temperature 97.9 F Pulse Rate Pulse Rate [Right Brachial] 80 Respiratory Rate 20 18 18 Blood Pressure Blood Pressure [Left Arm] 139/87 Blood Pressure [Right Arm] O2 Sat by Pulse Oximetry 92 L 11/11/21 16:00 11/11/21 17:30 11/11/21 18:00 Temperature 98.5 F Pulse Rate Pulse Rate [Right Brachial] 87 Respiratory Rate 22 16 17 Blood Pressure Blood Pressure [Left Arm] 137/83 Blood Pressure [Right Arm] O2 Sat by Pulse Oximetry 95 11/11/21 20:00 11/11/21 20:39 11/11/21 21:09 Temperature 100.2 F H Pulse Rate Pulse Rate [Right Brachial] 87 Respiratory Rate 20 20 18 Blood Pressure Blood Pressure [Left Arm] 131/68 Blood Pressure [Right Arm] O2 Sat by Pulse Oximetry 93 L 11/11/21 22:41 11/11/21 23:11 11/12/21 00:00 Temperature 100.1 F H Pulse Rate Pulse Rate [Right Brachial] 83 Respiratory Rate 20 20 20 Blood Pressure Blood Pressure [Left Arm] 118/73 Blood Pressure [Right Arm] O2 Sat by Pulse Oximetry 91 L 11/12/21 00:49 11/12/21 02:42 11/12/21 03:12 Temperature 100.1 F H Pulse Rate 83 Pulse Rate [Right Brachial] Respiratory Rate 20 20 20 Blood Pressure 118/73 Blood Pressure [Left Arm] Blood Pressure [Right Arm] O2 Sat by Pulse Oximetry 91 L 11/12/21 04:00 11/12/21 05:11 11/12/21 06:11 Temperature 102.1 F H Pulse Rate Pulse Rate [Right Brachial] 86 Respiratory Rate 20 18 18 Blood Pressure Blood Pressure [Left Arm] 126/78 Blood Pressure [Right Arm] O2 Sat by Pulse Oximetry 90 L 11/12/21 08:00 11/12/21 08:17 11/12/21 08:47 Temperature 99.4 F Pulse Rate Pulse Rate [Right Brachial] 96 H Respiratory Rate 18 20 18 Blood Pressure Blood Pressure [Left Arm] 117/66 Blood Pressure [Right Arm] O2 Sat by Pulse Oximetry 96 11/12/21 11:44 11/12/21 12:00 11/12/21 12:44 Temperature 100.0 F H Pulse Rate Pulse Rate [Right Brachial] 97 H Respiratory Rate 20 22 18 Blood Pressure Blood Pressure [Left Arm] 141/87 Blood Pressure [Right Arm] O2 Sat by Pulse Oximetry 92 L 11/12/21 13:43 11/12/21 14:13 11/12/21 16:00 Temperature 98.0 F Pulse Rate Pulse Rate [Right Brachial] 94 H Respiratory Rate 18 20 20 Blood Pressure Blood Pressure [Left Arm] 137/83 Blood Pressure [Right Arm] O2 Sat by Pulse Oximetry 92 L Labs: Laboratory Last Values WBC 11.0 X10^3/uL (3.6-10.0) H 11/12/21 04:54 RBC 3.17 X10^6/uL (4.7-6.0) L 11/12/21 04:54 Hgb 9.2 g/dL (13.5-18.0) L 11/12/21 04:54 Hct 26.3 % (42.0-54.0) L 11/12/21 04:54 MCV 83.1 fL (80.0-100.0) 11/12/21 04:54 MCH 28.9 pg (27.0-34.0) 11/12/21 04:54 MCHC 34.8 g/dL (33.0-35.0) 11/12/21 04:54 RDW 12.6 % (11.6-16.5) 11/12/21 04:54 Plt Count 201 X10^3/uL (150.0-450.0) 11/12/21 04:54 Plt Count Comment Decreased (ADEQUATE) 11/09/21 17:55 MPV 7.5 fL (7.4-11.0) 11/12/21 04:54 Neut % (Auto) 79.1 % (42.0-75.0) H 11/12/21 04:54 Lymph % (Auto) 13.4 % (21.0-51.0) L 11/12/21 04:54 [place] % (Auto) 6.5 % (0.0-13.0) 11/12/21 04:54 Eos % (Auto) 0.8 % (0.9-2.9) L 11/12/21 04:54 Baso % (Auto) 0.2 % (0.2-1.0) 11/12/21 04:54 Neut # (Auto) 8.7 x10^3/uL (2.2-4.8) H 11/12/21 04:54 Lymph # (Auto) 1.5 X10^3/uL (1.3-2.9) 11/12/21 04:54 [place] # (Auto) 0.7 x10^3/uL (0.3-0.8) 11/12/21 04:54 Eos # (Auto) 0.1 x10^3/uL (0.0-0.2) 11/12/21 04:54 Baso # (Auto) 0.0 X10^3/uL (0.0-0.1) 11/12/21 04:54 Absolute Nucleated RBC 0.0 /100WBC 11/12/21 04:54 Plt Clumps, EDTA Moderate 11/02/21 06:15 Plt Morphology Comment Normal (NORMAL) 11/09/21 17:55 RBC Morphology Normal (NORMAL) 11/09/21 17:55 D-Dimer 2.30 ug/ml (0.0-0.57) H* 10/30/21 21:45 Sodium 134 mmol/L (136-145) L 11/12/21 04:54 Corrected Sodium TNP 11/12/21 04:54 Potassium 3.6 mmol/L (3.5-5.1) 11/12/21 04:54 Chloride 102 mmol/L (98-107) 11/12/21 04:54 Carbon Dioxide 23.1 mmol/L (21-32) 11/12/21 04:54 BUN 15 mg/dL (7-18) 11/12/21 04:54 Creatinine 1.00 mg/dL (0.70-1.30) 11/12/21 04:54 Est GFR (MDRD) Af Amer > 60 (>60) 11/12/21 04:54 Est GFR (MDRD) Non-Af > 60 (>60) 11/12/21 04:54 Glucose 100 mg/dL (65-99) H 11/12/21 04:54 Calcium 8.1 mg/dL (8.5-10.1) L 11/12/21 04:54 Corrected Calcium 9.6 mg/dL (8.5-10.1) 11/12/21 04:54 Magnesium 2.0 mg/dL (1.7-2.9) 11/12/21 04:54 Total Bilirubin 0.30 mg/dL (0.2-1.0) 11/12/21 04:54 AST 50 Units/L (15-37) H 11/12/21 04:54 ALT 57 Units/L (12-78) 11/12/21 04:54 Alkaline Phosphatase 231 Units/L (46-116) H 11/12/21 04:54 Creatine Kinase 56 Units/L (39-308) 10/30/21 21:45 CK-MB (CK-2) 1.2 ng/mL (0-4.0) 10/30/21 21:45 CK/CKMB % Calc 2.1 % (<4) 10/30/21 21:45 Troponin I High Sens 9.7 ng/L (4.0-60.0) 10/30/21 21:45 Total Protein 6.5 g/dL (6.4-8.2) 11/12/21 04:54 Albumin 2.1 g/dL (3.4-5.0) L 11/12/21 04:54 Globulin 4.4 g/dL (2.5-4.5) 11/12/21 04:54 Albumin/Globulin Ratio 0.5 Ratio (1.1-2.1) L 11/12/21 04:54 SARS CoV-2 RNA Rapid MALIK Negative (NEGATIVE) 10/30/21 21:53 Blood Type O POSITIVE 11/09/21 10:50 Antibody Screen Negative 11/09/21 10:50 Reason For Visit: LEFT SPONTANEOUS PNEUMOTHORAX Discharge Date Discharge Date: 11/12/21 Discharge Diagnosis All Active Problems (Updated 11/09/21 @ 14:15 by Henok Yanes) Hemothorax, left (Acute) Spontaneous pneumothorax (Acute) Chest pain (Acute) Dyspnea (Acute) Plan of Treatment: Continue with present treatment and follow up plan. Pt is to keep follow up appointment as instructed and take medications as ordered. Discharge Medications Discharge Medications: No Known Drug Allergies Allergy (Verified 10/30/21 21:13) Percocet 5 mg, 1 po q 6 hr PRN pain , #30 CONTINUE taking the following medications NK 10/31/21 [History] Follow up and Referral Follow Up: 1 Week (reinaldo) Discharge Disposition Assessment: See hospital courde above Discharge Disposition: stable Discharge Condition: stable Discharge Plan Discharge Plan Hospital Course: 46 year old male who was evaluated in the emergency room on October 31 for increasing shortness of breath. Chest x-ray demonstrated a left spontaneous pneumothorax. He underwent left chest tube placement by myself. He had trials of water seal with recurrent pneumothorax. On November 09 his chest x-ray on water seal showed no pneumothorax however he began to have spontaneous bleeding in the skin of the chest tube site which fell into the left chest creating a left hemothorax. He was taken to the operating suite for evacuation of this hemothorax and placment of two chest tubes. He had no further active bleeding. Chest CT angiogram showed no bleeding vessels in the chest. He has done well and the blood has been evacuated from the left chest. Follow-up chest x-ray dated today shows no pneumothorax and hemothorax is evacuated with contusion of the lung of the left lower lobe. His chest tubes have been placed with Heimlich valves and he is to be discharged home with the chest tubes in place. He may shower. He will follow up with me in one week. He will be given Percocet, 5 mg tablets, one every six hours PRN pain , #30 . Patient Disposition: 01 HOME, SELF-CARE Condition: Stable Health Concerns: Post Hospitalization: new medications and changes needed to prevent readmission or further decline. Pt educated and given instructions on all concerns. Care Plan Goals: Problem: Pain/Alteration in Comfort Goal: Improve/ Resolve Pain; Achieve Pain Tolerance Instructions: Take pain medications as prescribed. Contact your primary care provider if your pain is unrelieved or worsens. Follow up with primary care provider as directed. Plan of Treatment: Continue with present treatment and follow up plan. Pt is to keep follow up appointment as instructed and take medications as ordered. Assessment: See hospital courmn above Prescription drug monitoring program results: PDMP reviewed and no concerns identified Prescriptions: No Action NK RF: 0 Follow ups/Referrals Follow ups/Referrals: Henok Yanes [STAFF PHYSICIAN] - 11/19/21 9:30 am Instructions Instructions: Shortness of Breath, Adult, [id number], Hemothorax, Nonspecific Chest Pain, Adult, [id number], Chest Wall Pain, [id number], Pneumothorax, Shortness of Breath, Adult, Cough, Adult, Chest Wall Pain Stand Alone Forms: Excuse From Work or School, Precautions for COVID19, [facility], Patient Portal, Social Distancing
== END 2021-11-12 19:30 | disposition home or self-care (01) | DRG 200 ==
LOC: ER 20:58 → MED/SURG 23:42
PROVIDERS: ADMIT Surgery; ATTEND Surgery
DX: R07.89 Other chest pain; J94.2 Hemothorax; R06.02 Shortness of breath; J93.83 Other pneumothorax; R26.89 Other abnormalities of gait and mobility; R94.31 Abnormal electrocardiogram [ECG] [EKG]; Z20.822 Contact with and (suspected) exposure to COVID-19

== ENCOUNTER 2021-11-16 21:38 | Observation (INO) ==
--- NOTE | 2021-11-16 23:04 | DR.EXTPAIN ---
HPI Time seen Time Seen by Provider: 11/16/21 22:44 PCP Primary Care Physician: HPI Comment HPI Comment: A 39 y/o male presenting with history of drainage from his chest tubes, the tube sites since yesterday. C/o dyspnea also. He was admitted to the hospital here over 2 weeks ago, he states. He developed a Lt. pneumothorax and had a chest tube inserted on 11/09/21. a 2nd tube had to be placed on 11/11/21. He was discharged home on 11/12/21. He had informed the triage nurse that his follow-up with the surgeon is tomorrow and he couldn't wait till then. But his significant other tells me they were to call the surgeon tomorrow and see him at the end of the week. Complaint/Symptoms Chief Complaint:: PT STATED HE WAS RELEASED FROM THE [facility]OSPITAL [facility] N[facility] WITH TWO CHEST TUBES. PT STATED SINCE YESTERDAY HE HAS BEEN LEAKING A MODERATE AMOUNT OF BROWNISH FLUID FROM AROUND THE INCISION SITES AND THE TUBES. PT STATED HE IS ALSO HAVING TROUBLE BREATHING AND IT HURTS TO BREATH. COVID-19 Coronavirus risk:travel/contact w/high risk person: No Has patient experienced Coronavirus symptoms: No Nurses notes reviewed Nurses Notes Review: Yes Source History Provided: Patient Mode of arrival Mode of Arrival: Wheelchair Timing Onset of Chief Complaint: 11/15/21 Context History of: None Associated signs and symptoms Associated Signs and Symptoms: None PMH PMH Past Medical History: Yes Past Medical History Comment: PNEUMOTHORAX Past Surgical History: Yes Surgical History: Ortho Surgery Past Surgical History Comment: KIDNEY SURGERY Family History History of Family Medical Conditions: Yes Family Medical History: Diabetes Mellitus Social History Alcohol Use: None Do you use any recreational Drugs:: No Lives With: Spouse Lives Where: Home Travel Risk Coronavirus risk:travel/contact w/high risk person: No Has patient experienced Coronavirus symptoms: No Infectious screening In the last 2 months have you had wt loss of >10#?: NO Have you had fever, night sweats or hemotysis?: No Have you traveled outside the country in the last 6 months?: No Isolation: Standard ROS Review of Systems Constitutional: No Symptoms Reported Eyes: No Symptoms Reported ENTM: No Symptoms Reported Respiratoy: Other (It hurts to breath) Cardiovascular: No Symptoms Reported Gastrointestinal/Abdominal: No Symptoms Reported Genitourinary: No Symptoms Reported Neurological: No Symptoms Reported Musculoskeletal: No Symptoms Reported Integumentary: No Symptoms Reported Hematologic/Lymphatic: No Symptoms Reported Endocrine: No Symptoms Reported Psychiatric: No Symptoms Reported PE Vital Signs Vitals: Temperature 98.9 F Pulse Rate [Left Radial] 84 Pulse Rate 90 Respiratory Rate 18 Blood Pressure [Left Arm] 113/61 Blood Pressure 109/54 O2 Sat by Pulse Oximetry 93 General Limitations: No Limitations General Appearance: Alert and In No Apparent Distress Head Head Exam: Normal Inspection, Atraumatic and Normocephalic Eyes Eye exam: Normal Appearance and EOMI ENT ENT Exam: Normal Exam, Normal Oropharynx, Normal External Ear Exam and Mucous Membranes Moist Neck Neck Exam: Normal Inspection, Full ROM and Trachea Midline Chest Chest Inspection: Normal Inspection, Symmetric Chest Wall Rise and Other (@ chest tubes exiting alonLt. mid ribs at anterior axillary line. Each one terminates into a taped rubber glove. There is a clean dressing at the chest exit of the tubes. ) Respiratory Respiratory Exam: Normal Lung Sounds Bilat Cardiovascular Cardiovascular Exam: Regular Rate, Normal Rhythm, Normal Heart Sounds, +S1 and +S2 Abdominal Exam Abdominal Exam: Normal Inspection, Normal Bowel Sounds and Soft Extremities Extremities Exam: Normal Inspection and Full ROM Back Back Exam: Normal Inspection and Full ROM Neurological Neurological Exam: Alert and Oriented X3 Psychiatric Psychiatric Exam: Normal Affect and Normal Mood Skin Skin Exam: Intact COURSE Treatment Treatment: I spoke with transportation clerk SurgeonTristan MD and Internal Med. transportation clerk, Dr. Forbes. It was agreed to admit to Internal Medicine with abx. schwartz and consult to Dr. Hudson. The pt. and his significant other were informed of findings and treatment plan. Reevaluation 1st: Unchanged Education/Counseling Education/Counseling: Patient, Family, Education and Counseling Educated On: Treatment, Diagnosis, Prognosis and Needs for Follow Up ROR Labs Reviewed Result Diagrams: 11/16/21 00:10 11/16/21 00:10 Laboratory: WBC 11.6 X10^3/uL (3.6-10.0) H 11/16/21 00:10 RBC 2.97 X10^6/uL (4.7-6.0) L 11/16/21 00:10 Hgb 8.4 g/dL (13.5-18.0) L 11/16/21 00:10 Hct 24.7 % (42.0-54.0) L 11/16/21 00:10 MCV 83.2 fL (80.0-100.0) 11/16/21 00:10 MCH 28.2 pg (27.0-34.0) 11/16/21 00:10 MCHC 33.9 g/dL (33.0-35.0) 11/16/21 00:10 RDW 13.0 % (11.6-16.5) 11/16/21 00:10 Plt Count 102 X10^3/uL (150.0-450.0) L 11/16/21 00:10 Plt Count Comment Decreased (ADEQUATE) 11/16/21 00:10 MPV 8.5 fL (7.4-11.0) 11/16/21 00:10 Neut % (Auto) 73.5 % (42.0-75.0) 11/16/21 00:10 Lymph % (Auto) 16.9 % (21.0-51.0) L 11/16/21 00:10 [place] % (Auto) 7.3 % (0.0-13.0) 11/16/21 00:10 Eos % (Auto) 1.5 % (0.9-2.9) 11/16/21 00:10 Baso % (Auto) 0.8 % (0.2-1.0) 11/16/21 00:10 Neut # (Auto) 8.6 x10^3/uL (2.2-4.8) H 11/16/21 00:10 Lymph # (Auto) 2.0 X10^3/uL (1.3-2.9) 11/16/21 00:10 [place] # (Auto) 0.8 x10^3/uL (0.3-0.8) 11/16/21 00:10 Eos # (Auto) 0.2 x10^3/uL (0.0-0.2) 11/16/21 00:10 Baso # (Auto) 0.1 X10^3/uL (0.0-0.1) 11/16/21 00:10 Absolute Nucleated RBC 0.0 /100WBC 11/16/21 00:10 Plt Clumps, EDTA Few 11/16/21 00:10 Plt Morphology Comment Normal (NORMAL) 11/16/21 00:10 RBC Morphology Normal (NORMAL) 11/16/21 00:10 Sodium 134 mmol/L (136-145) L 11/16/21 00:10 Corrected Sodium TNP 11/16/21 00:10 Potassium 4.3 mmol/L (3.5-5.1) 11/16/21 00:10 Chloride 100 mmol/L (98-107) 11/16/21 00:10 Carbon Dioxide 26.5 mmol/L (21-32) 11/16/21 00:10 BUN 11 mg/dL (7-18) 11/16/21 00:10 Creatinine 1.02 mg/dL (0.70-1.30) 11/16/21 00:10 Est GFR (MDRD) Af Amer > 60 (>60) 11/16/21 00:10 Est GFR (MDRD) Non-Af > 60 (>60) 11/16/21 00:10 Glucose 95 mg/dL (65-99) 11/16/21 00:10 Calcium 8.2 mg/dL (8.5-10.1) L 11/16/21 00:10 Corrected Calcium 9.6 mg/dL (8.5-10.1) 11/16/21 00:10 Total Bilirubin 0.30 mg/dL (0.2-1.0) 11/16/21 00:10 AST 40 Units/L (15-37) H 11/16/21 00:10 ALT 44 Units/L (12-78) 11/16/21 00:10 Alkaline Phosphatase 162 Units/L (46-116) H 11/16/21 00:10 Total Protein 7.3 g/dL (6.4-8.2) 11/16/21 00:10 Albumin 2.2 g/dL (3.4-5.0) L 11/16/21 00:10 Globulin 5.1 g/dL (2.5-4.5) H 11/16/21 00:10 Albumin/Globulin Ratio 0.4 Ratio (1.1-2.1) L 11/16/21 00:10 Opioid Opioid Risk Tool Age (Donny box if 16-45): No History of Preadolescent Sexual Abuse: No Total: 0 Total Score Risk Category: Low Risk Copyright: [facility] predicting aberrant behaviors Diagnosis Discharge Problem: Chest tube in place Pneumonia Qualifiers: Pneumonia type: due to unspecified organism Laterality: left Lung location: lower lobe of lung Qualified Code(s): J18.9 - Pneumonia, unspecified organism Complication of chest tube Qualifiers: Encounter type: initial encounter Qualified Code(s): T85.9XXA - Unspecified complication of internal prosthetic device, implant and graft, initial encounter Instructions Forms: Precautions for COVID19 [facility] Patient Portal Social Distancing ADDITIONAL NOTES Additional Notes Additional Notes: Name: Manjeet ADAMS#: [id number]: [id number] : 1975Sex: MLocation: ER Order Number(s): [id number](s):CHEST, 1 VIEW Ordering Physician: KEYSHA MICHELE Primary Care: Henok Yanes Service Date: 11/16/21 Service Time: 9 EXAM: CHEST X-RAY HISTORY: Chest tube complications. Pneumothorax. TECHNIQUE: AP chest x-ray dated November 16, 2021 at 11 PM. COMPARISON: CXR dated November 12, 2021. FINDINGS: The heart size and mediastinum are within normal limits. The right lung henao and costophrenic angles are clear. There are 2 stable left-sided chest tubes in situ. There is interval development of increased left lateral subpleural opacity suspicious for pneumonia small pleural effusion. There is mild interval progression of interstitial prominence seen throughout the left lower lung field which may represent mild atelectasis and/or congestive infiltrate and/or bronchopneumonia in the appropriate clinical setting. There is no pneumothorax seen. The visualized bony structures are within normal limits. IMPRESSION: 1. Interval development of increased left lateral subpleural opacity suspicious for pneumonia small pleural effusion. 2. Interval progression of interstitial prominence seen throughout the left lower lung field which may represent mild atelectasis and/or congestive infiltrate and/or bronchopneumonia in the appropriate clinical setting. Electronically signed by: Bobby López (Nov 16, 2021 23:28:09) Report Electronically signed: 11/16/21 [id number] CC: Keysha Michele
--- NOTE | 2021-11-16 23:29 | RAD ---
EXAM: CHEST X-RAYHISTORY: Chest tube complications. Pneumothorax.TECHNIQUE: AP chest x-ray dated November 16, 2021 at 11 PM.COMPARISON: CXR dated November 12, 2021.FINDINGS:The heart size and mediastinum are within normal limits. The right lung henao and costophrenic angles are clear. There are 2 stable left-sided chest tubes in situ. There is interval development of increased left lateral subpleural opacity suspicious for pneumonia small pleural effusion. There is mild interval progression of interstitial prominence seen throughout the left lower lung field which may represent mild atelectasis and/or congestive infiltrate and/or bronchopneumonia in the appropriate clinical setting. There is no pneumothorax seen. The visualized bony structures are within normal limits.IMPRESSION:1. Interval development of increased left lateral subpleural opacity suspicious for pneumonia small pleural effusion.2. Interval progression of interstitial prominence seen throughout the left lower lung field which may represent mild atelectasis and/or congestive infiltrate and/or bronchopneumonia in the appropriate clinical setting.Electronically signed by: Bobby López (Nov 16, 2021 23:28:09)
[2021-11-16] MEDS ORDERED: NS 1,000 ML IV 1,000 ML IV SCH ×2 (23:45)
[2021-11-16] MEDS ORDERED: LEVAQUIN PREMIX IV 750 MG 750 MG/150 ML BAG IV ONE (23:52)
[2021-11-17] MEDS ORDERED: SALINE 3% 15 ML NEB TX ONE
[2021-11-17] MEDS ORDERED: SALINE 3% 15 ML NEB TX NEB ONE (00:18)
[2021-11-17 00:21] LABS: BASOPHILS # (AUTO) 0.1 X10^3/uL (0.0-0.1); EOSINOPHILS # (AUTO) 0.2 x10^3/uL (0.0-0.2); MONOCYTES # (AUTO) 0.8 x10^3/uL (0.3-0.8)
[2021-11-17 00:23] LABS: HEMOGLOBIN 8.4 g/dL (13.5-18.0); RED BLOOD COUNT 2.97 X10^6/uL (4.7-6.0)
[2021-11-17 00:27] LABS: BASOPHILS % (AUTO) 0.8 % (0.2-1.0); EOSINOPHILS % (AUTO) 1.5 % (0.9-2.9); HEMATOCRIT 24.7 % (42.0-54.0); LYMPHOCYTES % (AUTO) 16.9 % (21.0-51.0); MEAN CORPUSCULAR HEMOGLOBIN 28.2 pg (27.0-34.0); MEAN CORPUSCULAR HGB CONC 33.9 g/dL (33.0-35.0); MEAN CORPUSCULAR VOLUME 83.2 fL (80.0-100.0); MEAN PLATELET VOLUME 8.5 fL (7.4-11.0); MONOCYTES % (AUTO) 7.3 % (0.0-13.0); NEUTROPHILS # (AUTO) 8.6 x10^3/uL (2.2-4.8); NEUTROPHILS % (AUTO) 73.5 % (42.0-75.0)
[2021-11-17] MEDS ORDERED: NS 1,000 ML IV 1,000 ML ONE (00:30)
[2021-11-17 00:31] LABS: ALANINE AMINOTRANSFERASE 44 Units/L (12-78); ALBUMIN 2.2 g/dL (3.4-5.0); ALKALINE PHOSPHATASE 162 Units/L (46-116); ASPARTATE AMINO TRANSFERASE 40 Units/L (15-37); BLOOD UREA NITROGEN 11 mg/dL (7-18); CALCIUM 8.2 mg/dL (8.5-10.1); CARBON DIOXIDE 26.5 mmol/L (21-32); CHLORIDE 100 mmol/L (98-107); COR CA(FOR HYPOALB) 9.6 mg/dL (8.5-10.1); CREATININE 1.02 mg/dL (0.70-1.30); SODIUM 134 mmol/L (136-145); TOTAL PROTEIN 7.3 g/dL (6.4-8.2); eGFR NON BLACK RACES > 60 (>60)
[2021-11-17] MEDS ORDERED: LEVAQUIN PREMIX IV 750 MG 750 MG/150 ML BAG IV ONE (00:31)
[2021-11-17 00:38] LABS: PLATELET MORPHOLOGY COMMENT NORMAL (NORMAL); WHITE BLOOD COUNT 11.6 X10^3/uL (3.6-10.0)
[2021-11-17] MEDS ORDERED: NS 1/2 1,000 ML IV 1,000 ML IV SCH (02:00)
[2021-11-17] MEDS ORDERED: STERILE WATER IRRIGATION IR ONE (02:18)
[2021-11-17] MEDS ORDERED: NS 1/2 1,000 ML IV 1,000 ML IV ONE (02:56)
[2021-11-17] MEDS ORDERED: NORCO 5/325 MG TAB PO PRN (03:42)
[2021-11-17] MEDS ORDERED: NORCO 5/325 MG TAB ONE (03:47)
[2021-11-17 05:03] VITALS: BMI 22.9
[2021-11-17 06:49] LABS: BASOPHILS % (AUTO) 0.4 % (0.2-1.0); EOSINOPHILS # (AUTO) 0.1 x10^3/uL (0.0-0.2); EOSINOPHILS % (AUTO) 1.7 % (0.9-2.9); HEMATOCRIT 23.7 % (42.0-54.0); LYMPHOCYTES % (AUTO) 11.8 % (21.0-51.0); MEAN CORPUSCULAR HEMOGLOBIN 28.2 pg (27.0-34.0); MEAN CORPUSCULAR HGB CONC 33.7 g/dL (33.0-35.0); MEAN CORPUSCULAR VOLUME 83.7 fL (80.0-100.0); MEAN PLATELET VOLUME 8.4 fL (7.4-11.0); MONOCYTES # (AUTO) 0.7 x10^3/uL (0.3-0.8); MONOCYTES % (AUTO) 7.4 % (0.0-13.0); NEUTROPHILS # (AUTO) 6.9 x10^3/uL (2.2-4.8); NEUTROPHILS % (AUTO) 78.7 % (42.0-75.0); RED BLOOD COUNT 2.83 X10^6/uL (4.7-6.0); RED CELL DISTRIBUTION WIDTH 13.1 % (11.6-16.5); WHITE BLOOD COUNT 8.8 X10^3/uL (3.6-10.0)
[2021-11-17 06:53] LABS: ALANINE AMINOTRANSFERASE 45 Units/L (12-78); ALBUMIN 1.9 g/dL (3.4-5.0); ALKALINE PHOSPHATASE 163 Units/L (46-116); ASPARTATE AMINO TRANSFERASE 39 Units/L (15-37); BLOOD UREA NITROGEN 11 mg/dL (7-18); CALCIUM 8.1 mg/dL (8.5-10.1); CARBON DIOXIDE 28.5 mmol/L (21-32); CHLORIDE 101 mmol/L (98-107); COR CA(FOR HYPOALB) 9.8 mg/dL (8.5-10.1); COR NA(FOR HYPERGLY) 135 mmol/L (136-145); CREATININE 1.03 mg/dL (0.70-1.30); SODIUM 135 mmol/L (136-145); TOTAL PROTEIN 6.9 g/dL (6.4-8.2); eGFR NON BLACK RACES > 60 (>60)
[2021-11-17] MEDS ORDERED: MORPHINE SULFATE INJ 4 MG IVP PRN (08:26)
[2021-11-17] MEDS ORDERED: VSL#3 PO SCH (09:00)
[2021-11-17] MEDS ORDERED: DUONEB 0.5 MG/3 MG (3 mL) NEB SCH (09:00)
[2021-11-17] MEDS ORDERED: ROBITUSSIN DM PO SCH (09:00)
--- NOTE | 2021-11-17 09:16 | DR.H&P ---
H&P History & Physical for Day of: H&P Date: 11/17/21 Chief Complaint Chief Complaint: Left sided chest pain Chills Allergies Allergies Allergy/AdvReac Type Severity Reaction Status Date / Time No Known Drug Allergies Allergy Verified 10/30/21 21:13 History of Present Illness History of Present Illness: Pt is a 46 year old male presenting with left sided chest pain and chills. He was recently discharged last week s/p 2 chest tubes due to left pneumothorax. He reports since he has noticed drainage from chest tube sites as well as pain. Labs/imaging: Wbc 8.8, Hgb 8.0, Plt 97, Na 135, K 4.0, Creatinine 1.03, Glucose 116, Wound/Blood culture pending, CXR: 1. Interval development of increased left lateral subpleural opacity suspicious for pneumonia small pleural effusion. 2. Interval progression of interstitial prominence seen throughout the left lower lung field which may represent mild atelectasis and/or congestive infiltrate and/or bronchopneumonia in the appropriate clinical setting. Will treat patient for pneumonia. Start on antibiotics: IV Levaquin 750mg daily, pain control with IV morphine 2mg prn, restart home medications. Will consult surgery-Dr Yanes for evaluation of chest tubes and possible removal. Continue to closely monitor and follow up labs/imaging. Past Medical History Additional Medical History: Hx of spontaneous left pneumothorax treated at 14 yo with observation Past Surgical History Surgical History: Ortho Surgery Family History Family Medical History: Diabetes Mellitus Social History Does patient currently use any type of tobacco product: Yes Have you used tobacco products in the last 12 months: Yes Type of Tobacco Use: Cigarettes Alcohol Use: None Drug Use: None Medications Home Medications: No Known Drug Allergies Allergy (Verified 10/30/21 21:13) Labs Result Diagrams: 11/17/21 05:29 11/17/21 05:29 Labs: 11/17/21 04:15 Drainage Wound Gram Stain - Final 11/17/21 03:15 Chest Wound Gram Stain - Final Laboratory WBC 8.8 X10^3/uL (3.6-10.0) 11/17/21 05:29 RBC 2.83 X10^6/uL (4.7-6.0) L 11/17/21 05:29 Hgb 8.0 g/dL (13.5-18.0) L 11/17/21 05:29 Hct 23.7 % (42.0-54.0) L 11/17/21 05:29 MCV 83.7 fL (80.0-100.0) 11/17/21 05:29 MCH 28.2 pg (27.0-34.0) 11/17/21 05:29 MCHC 33.7 g/dL (33.0-35.0) 11/17/21 05:29 RDW 13.1 % (11.6-16.5) 11/17/21 05:29 Plt Count 97 X10^3/uL (150.0-450.0) L 11/17/21 05:29 Plt Count Comment Decreased (ADEQUATE) 11/16/21 00:10 MPV 8.4 fL (7.4-11.0) 11/17/21 05:29 Neut % (Auto) 78.7 % (42.0-75.0) H 11/17/21 05:29 Lymph % (Auto) 11.8 % (21.0-51.0) L 11/17/21 05:29 [place] % (Auto) 7.4 % (0.0-13.0) 11/17/21 05:29 Eos % (Auto) 1.7 % (0.9-2.9) 11/17/21 05:29 Baso % (Auto) 0.4 % (0.2-1.0) 11/17/21 05:29 Neut # (Auto) 6.9 x10^3/uL (2.2-4.8) H 11/17/21 05:29 Lymph # (Auto) 1.0 X10^3/uL (1.3-2.9) L 11/17/21 05:29 [place] # (Auto) 0.7 x10^3/uL (0.3-0.8) 11/17/21 05:29 Eos # (Auto) 0.1 x10^3/uL (0.0-0.2) 11/17/21 05:29 Baso # (Auto) 0.0 X10^3/uL (0.0-0.1) 11/17/21 05:29 Absolute Nucleated RBC 0.2 /100WBC 11/17/21 05:29 Plt Clumps, EDTA Few 11/16/21 00:10 Plt Morphology Comment Normal (NORMAL) 11/16/21 00:10 RBC Morphology Normal (NORMAL) 11/16/21 00:10 Sodium 135 mmol/L (136-145) L 11/17/21 05:29 Corrected Sodium 135 mmol/L (136-145) L 11/17/21 05:29 Potassium 4.0 mmol/L (3.5-5.1) 11/17/21 05:29 Chloride 101 mmol/L (98-107) 11/17/21 05:29 Carbon Dioxide 28.5 mmol/L (21-32) 11/17/21 05:29 BUN 11 mg/dL (7-18) 11/17/21 05:29 Creatinine 1.03 mg/dL (0.70-1.30) 11/17/21 05:29 Est GFR (MDRD) Af Amer > 60 (>60) 11/17/21 05:29 Est GFR (MDRD) Non-Af > 60 (>60) 11/17/21 05:29 Glucose 116 mg/dL (65-99) H 11/17/21 05:29 Calcium 8.1 mg/dL (8.5-10.1) L 11/17/21 05:29 Corrected Calcium 9.8 mg/dL (8.5-10.1) 11/17/21 05:29 Total Bilirubin 0.30 mg/dL (0.2-1.0) 11/17/21 05:29 AST 39 Units/L (15-37) H 11/17/21 05:29 ALT 45 Units/L (12-78) 11/17/21 05:29 Alkaline Phosphatase 163 Units/L (46-116) H 11/17/21 05:29 Total Protein 6.9 g/dL (6.4-8.2) 11/17/21 05:29 Albumin 1.9 g/dL (3.4-5.0) L 11/17/21 05:29 Globulin 5.0 g/dL (2.5-4.5) H 11/17/21 05:29 Albumin/Globulin Ratio 0.4 Ratio (1.1-2.1) L 11/17/21 05:29 SARS CoV-2 RNA Rapid MALIK Negative (NEGATIVE) 11/17/21 00:55 Review of Systems Constitutional: Chills; denies Fever Eyes: No Symptoms Reported ENT: No Symptoms Reported Respiratory: Shortness of Breath and Pleuritic Pain Cardiovascular: No Symptoms Reported Gastrointestinal: No Symptoms Reported Genitourinary: No Symptoms Reported Musculoskeletal: No Symptoms Reported Skin: No Symptoms Reported Neurological: No Symptoms Reported Physical Exam Vital Signs: Temperature 98.5 F Pulse Rate [Left Radial] 79 Pulse Rate 90 Respiratory Rate 20 Blood Pressure [Left Arm] 118/69 Blood Pressure 109/54 O2 Sat by Pulse Oximetry 98 Oriented: Normal Eyes: Normal Ear: Normal Nose: Normal Throat: Normal Respiratory: Diminished Throughout Cardiovascular: Normal : Normal Auscultation: Bowel Sounds: Normal Palpation: Normal Tenderness: Normal Skin: Other (2 chest tubes left side) Musculoskeletal: Normal Psychiatric: Normal Mood Description: Calm and Appropriate Affect: Normal Speech Pattern: Clear and Appropriate Assessment/Plan (1) Pneumonia: Qualifiers: Laterality: left Lung location: lower lobe of lung Pneumonia type: due to unspecified organism Qualified Code(s): J18.9 - Pneumonia, unspecified organism Status: Acute Plan: IV antibiotics (2) Chest tube in place: Status: Acute Plan: Consult surgery Review H&P Reviewed: Yes Patient was examined?: Yes
--- NOTE | 2021-11-17 10:19 | DR.CONSULT ---
CONSULT Consultation for Day of: Date: 11/17/21 Chief Complaint Chief Complaint: 46 year old male seen by me over one week ago with spontaneous left pneumothorax which became a hemothorax on post-operative day 3 with bleeding from the skin site into the left chest requiring mini thoracotomy and evacuation of blood in the left chest. Patient had two chest tube in place which were both on water seal with Heimlich valves. He was supposed to follow up with with me tomorrow in the office . Presented complaining of chest pain and drainage around the chest tube sites. Chest x-ray consistent with possible pneumonia however it is not much different than before and most likely was consistent with contusion from evacuation of the thorax. He had no fever and no elevated white blood cell count. Allergies Allergies Allergy/AdvReac Type Severity Reaction Status Date / Time No Known Drug Allergies Allergy Verified 10/30/21 21:13 History of Present Illness History of Present Illness: see above Past Medical History Additional Medical History: Hx of spontaneous left pneumothorax treated at 14 yo with observation Past Surgical History Surgical History: Ortho Surgery Family History Family Medical History: Diabetes Mellitus Social History Does patient currently use any type of tobacco product: Yes Have you used tobacco products in the last 12 months: Yes Type of Tobacco Use: Cigarettes Alcohol Use: None Drug Use: None Medications Home Medications: Per No Known Drug Allergies Allergy (Verified 10/30/21 21:13) Percocet Review of Systems Constitutional: Chills (Reported on the ER note to have chills although I could not document that on my history of the patient. ) Physical Exam Vital Signs: Temperature 98.5 F Pulse Rate [Left Radial] 79 Pulse Rate 79 Respiratory Rate 20 Blood Pressure [Left Arm] 118/69 Blood Pressure 109/54 O2 Sat by Pulse Oximetry 92 Respiratory: LLL Diminished Plan (1) Pneumonia: Status: Acute Qualifiers: Laterality: left Lung location: lower lobe of lung Pneumonia type: due to unspecified organism Qualified Code(s): J18.9 - Pneumonia, unspecified organism (2) Chest tube in place: Status: Acute (3) Hemothorax, left: Status: Acute Plan: Discontinue both chest tubes today. Hopefully can be discharged home on PO antibiotics as per Dr. Forbes. follow up with me on November 21 . (4) Spontaneous pneumothorax: Status: Acute
[2021-11-17 12:05] VITALS: BP 121/78
[2021-11-18] MEDS ORDERED: LEVAQUIN PREMIX IV 750 MG 750 MG/150 ML BAG IV SCH (01:00)
== END 2021-11-17 14:15 | disposition home or self-care (01) ==
LOC: ER 22:02 → MED/SURG 22:02
PROVIDERS: ADMIT Surgery; ATTEND Family Medicine